=== PATIENT | female | born 1995 | race African-American/Black ===

== ENCOUNTER 2017-07-11 10:43 | Emergency (ER) | payer OTHER, SELFPAY ==
--- NOTE | 2017-07-11 11:18 | ER ---
Nurse's Notes [facility] Emergency [facility] Name: Tristan Song Age: 22 yrs Sex: Female : 1995 Arrival Date: 07/11/2017 Time: 10:46 Bed 15 Private MD: None, None Diagnosis: Urinary tract infection, site not specified Presentation: 07/11 10:50 Presenting complaint: Patient states: Pain in right shoulder that moved to lower back aj with pelvic cramping, started today. Transition of care: patient was not received from another setting of care. Onset of symptoms was July 11, 2017. Care prior to arrival: None. 10:50 Method Of Arrival: Ambulatory aj 10:50 Acuity: SHALA 3 aj 11:52 Risk Assessment: Do you want to hurt yourself or someone else? Patient reports no jl7 desire to harm self or others. Initial Sepsis Screen: Does the patient meet any 2 criteria? No. Patient's initial sepsis screen is negative. Does the patient have a suspected source of infection? Yes: Dysuria/Frequency/Urgency/UTI. Triage Assessment: 10:51 General: Appears in no apparent distress. uncomfortable, Behavior is calm, cooperative, aj appropriate for age. Pain: Complains of pain in back and pelvis. Neuro: Level of Consciousness is awake, alert, obeys commands, Oriented to person, place, time, situation, Appropriate for age. Respiratory: Airway is patent Respiratory effort is even, unlabored, Respiratory pattern is regular, symmetrical. GI: Abdomen is flat, non-distended. : Reports cramping. Derm: Skin is intact, is healthy with good turgor, Skin is pink, warm \T\ dry. normal. Musculoskeletal: Reports pain in back. INTERVENTIONAL RADIOLOGY RN: 10:51 LMP 06/11/2017 aj Historical: - Allergies: 10:51 No Known Allergies; aj - Home Meds: 10:51 None [Active]; aj - PMHx: 10:51 None; aj - PSHx: 10:51 None; aj - Immunization history:: Adult Immunizations up to date. - Social history:: Smoking status: Patient/guardian denies using tobacco. - Ebola Screening: : No symptoms or risks identified at this time. Screenin:15 Abuse screen: Denies threats or abuse. Denies injuries from another. Nutritional jl7 screening: No deficits noted. Tuberculosis screening: No symptoms or risk factors identified. Fall Risk None identified. Assessment: 11:15 General: Appears in no apparent distress. uncomfortable, Behavior is calm, cooperative, jl7 appropriate for age. Pain: Complains of pain in pelvis and back Pain currently is 10 out of 10 on a pain scale. Pain began 1 day ago. Is continuous. Neuro: Level of Consciousness is awake, alert, obeys commands. Cardiovascular: Patient's skin is warm and dry. Respiratory: Airway is patent Respiratory effort is even, unlabored, Respiratory pattern is regular, symmetrical. GI: Bowel sounds present X 4 quads. Abd is soft and non tender X 4 quads. Abdomen is tender to palpation in suprapubic area Reports nausea, vomiting. : Reports pain in suprapubic area with urination, urinary frequency, since last night. Derm: Skin is dry, Skin is normal, Skin temperature is warm. Vital Signs: 10:51 BP 135 / 72; Pulse 112; Resp 20; Temp 100.0; Pulse Ox 99% on R/A; Weight 63.5 kg; aj Height 5 ft. 9 in. (175.26 cm); 12:00 BP 134 / 71; Pulse 101; Resp 16; Pulse Ox 99% ; jl7 10:51 Body Mass Index 20.67 (63.50 kg, 175.26 cm) aj ED Course: 10:46 Patient arrived in ED. mr 10:46 None, None is Private Physician. mr 10:50 Triage completed. aj 10:51 Arm band placed on left wrist. Patient placed in an exam room. aj 10:54 Ana Luisa Sanders [facility]NP-C [facility]. snw 10:54 Paul Gonzales MD is Attending Physician. snw 11:05 Tricia Moore RN is Primary Nurse. jl7 11:15 Patient has correct armband on for positive identification. Bed in low position. Call jl7 light in reach. Side rails up X 1. Pulse ox on. NIBP on. 11:30 Urine collected: clean catch specimen, cloudy. jl7 11:51 No provider procedures requiring assistance completed. Patient did not have IV access jl7 during this emergency room visit. Administered Medications: 11:43 Drug: Rocephin (cefTRIAXone) 1 grams Route: IM; Site: right gluteus; jl7 12:06 Follow up: Response: No adverse reaction jl7 11:52 Drug: Bactrim (160 mg-800 mg (DS) 1 tablet Route: PO; 7 12:06 Follow up: Response: No adverse reaction 7 Outcome: 11:18 Discharge ordered by MD. cunningham 12:05 Discharged to home ambulatory. jl7 12:05 Condition: stable 12:05 Discharge instructions given to patient, family, Instructed on discharge instructions, follow up and referral plans. medication usage, Demonstrated understanding of instructions, follow-up care, medications, Prescriptions given X 1. 12:06 Patient left the ED. jl7 Addendum: 07/14/2017 15:54 Addendum: Culture Results: Positive urine culture. Bacteria is resistant to, has s s intermediate sensitivity, or is not tested against prescribed antibiotics. Report given to FLAKO for further evaluation and then to travel clerk for follow up with patient. Phone call Attempt #1 Spoke with patient who states she is still in pain. Pt verbalizes understanding importance of following up with PCP, but states she does not have insurance or money, therefore will not be able to follow up as directed by ER staff. Patient directed to stop Bactrim, continue Keflex and begin to take Macrobid that has been called in to [facility] as requested. Signatures: Tameka Lafleur, RN Ana Luisa Doyle, ROSALINDA HURLEYP-Chelsie Zamora Shelby, RN RN ss Leal, Jahala, RN RN jl7
--- NOTE | 2017-07-11 11:19 | EDPHYS ---
Physician Documentation [facility] Name: Tristan Song Age: 22 yrs Sex: Female : 1995 Arrival Date: 07/11/2017 Time: 10:46 Bed 15 Private MD: None, None ED Physician Paul Gonzales HPI: 07/11 11:41 This 22 yrs old Black Female presents to ER via Ambulatory with complaints of Abdominal snw Pain, Back Pain. 11:41 The patient presents with abdominal pain suprapubic, right upper hip. Onset: The snw symptoms/episode began/occurred suddenly, last night. The symptoms do not radiate. Associated signs and symptoms: Pertinent positives: lightheadedness, nausea. The symptoms are described as crampy. Severity of pain: At its worst the pain was moderate. It is unknown whether or not the patient has had similar symptoms in the past. It is unknown whether or not the patient has recently seen a physician. 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 - Social history:: Smoking status: Patient/guardian denies using tobacco. - Ebola Screening: : No symptoms or risks identified at this time. ROS: 11:40 Constitutional: Negative for fever, chills, and weight loss, Eyes: Negative for injury, snw pain, redness, and discharge, ENT: Negative for injury, pain, and discharge, Neck: Negative for injury, pain, and swelling, Cardiovascular: Negative for chest pain, palpitations, and edema, Respiratory: Negative for shortness of breath, cough, wheezing, and pleuritic chest pain, Abdomen/GI: Negative for abdominal pain, nausea, vomiting, diarrhea, and constipation, Back: Negative for injury and pain, MS/Extremity: Negative for injury and deformity, Skin: Negative for injury, rash, and discoloration, Neuro: Negative for headache, weakness, numbness, tingling, and seizure. Exam: 11:41 Constitutional: This is a well developed, well nourished patient who is awake, alert, snw and in no acute distress. Head/Face: Normocephalic, atraumatic. Eyes: Pupils equal round and reactive to light, extra-ocular motions intact. Lids and lashes normal. Conjunctiva and sclera are non-icteric and not injected. Cornea within normal limits. Periorbital areas with no swelling, redness, or edema. ENT: Nares patent. No nasal discharge, no septal abnormalities noted. Tympanic membranes are normal and external auditory canals are clear. Oropharynx with no redness, swelling, or masses, exudates, or evidence of obstruction, uvula midline. Mucous membranes moist. Neck: Trachea midline, no thyromegaly or masses palpated, and no cervical lymphadenopathy. Supple, full range of motion without nuchal rigidity, or vertebral point tenderness. No Meningismus. Chest/axilla: Normal chest wall appearance and motion. Nontender with no deformity. No lesions are appreciated. Cardiovascular: Regular rate and rhythm with a normal S1 and S2. No gallops, murmurs, or rubs. Normal PMI, no JVD. No pulse deficits. Respiratory: Lungs have equal breath sounds bilaterally, clear to auscultation and percussion. No rales, rhonchi or wheezes noted. No increased work of breathing, no retractions or nasal flaring. Abdomen/GI: Soft, non-tender, with normal bowel sounds. No distension or tympany. No guarding or rebound. No evidence of tenderness throughout. Back: No spinal tenderness. No costovertebral tenderness. Full range of motion. Skin: Warm, dry with normal turgor. Normal color with no rashes, no lesions, and no evidence of cellulitis. MS/ Extremity: Pulses equal, no cyanosis. Neurovascular intact. Full, normal range of motion. Neuro: Awake and alert, GCS 15, oriented to person, place, time, and situation. Cranial nerves II-XII grossly intact. Motor strength 5/5 in all extremities. Sensory grossly intact. Cerebellar exam normal. Normal gait. Psych: Awake, alert, with orientation to person, place and time. Behavior, mood, and affect are within normal limits. Vital Signs: 10:51 BP 135 / 72; Pulse 112; Resp 20; Temp 100.0; Pulse Ox 99% on R/A; Weight 63.5 kg; aj Height 5 ft. 9 in. (175.26 cm); 12:00 BP 134 / 71; Pulse 101; Resp 16; Pulse Ox 99% ; jl7 10:51 Body Mass Index 20.67 (63.50 kg, 175.26 cm) aj MDM: 10:54 Patient medically screened. snw 11:41 Data reviewed: vital signs, nurses notes. Data interpreted: Pulse oximetry: on room air snw is 99 %. Interpretation: normal. Counseling: I had a detailed discussion with the patient and/or guardian regarding: the historical points, exam findings, and any diagnostic results supporting the discharge/admit diagnosis, the presence of at least one elevated blood pressure reading (>120/80) during this emergency department visit, lab results, the need for outpatient follow up, to return to the emergency department if symptoms worsen or persist or if there are any questions or concerns that arise at home. Special discussion: Based on the patient's Hx, exam, and Dx evaluation, there is no indication for emergent surgery or inpatient Tx. It is understood by the patient/guardian that if the Sx's persist or worsen they need to return immediately for re-evaluation. Based on the history and exam findings, there is no indication for further emergent testing or inpatient evaluation. I discussed with the patient/guardian the need to see the OB Gyne specialist for further evaluation of the symptoms. I discussed with the patient/guardian the need to see the primary care provider for further evaluation of the symptoms. 07/11 10:56 Order name: Urine Culture [facility] 07/11 10:56 Order name: Urine Microscopic Only; Complete Time: 11:36 snw 07/11 11:25 Order name: Urine Dipstick--Ancillary (enter results); Complete Time: 11:36 bd 07/11 11:25 Order name: Urine --Ancillary (enter results); Complete Time: 11:36 bd 07/11 10:56 Order name: Urine Test (obtain specimen); Complete Time: 11:21 snw 07/11 10:56 Order name: Urine Dipstick-Ancillary (obtain specimen); Complete Time: 11:21 snw Administered Medications: 11:43 Drug: Rocephin (cefTRIAXone) 1 grams Route: IM; Site: right gluteus; jl7 12:06 Follow up: Response: No adverse reaction [facility] 11:52 Drug: Bactrim (160 mg-800 mg (DS) 1 tablet Route: PO; jl7 12:06 Follow up: Response: No adverse reaction jl7 Disposition: 22:08 Co-signature as Attending Physician, Paul Gonzales MD I agree with the assessment and kdr plan of care. Disposition: 07/11/17 11:18 Discharged to Home. Impression: Urinary tract infection, site not specified. - Condition is Stable. - Discharge Instructions: Back Pain, Adult, Urinary Tract Infection, Abdominal Pain, Women. - Prescriptions for Zofran 4 mg Oral Tablet - take 1 tablet by ORAL route every 12 hours As needed; 6 tablet. Bactrim DS 800- 160 mg Oral Tablet - take 1 tablet by ORAL route every 12 hours for 10 days; 20 tablet. - Medication Reconciliation Form, Thank You Letter, Antibiotic Education, Prescription Opioid Use, Work release form, Family Work Release form. - Follow up: Private Physician; When: 2 - 3 days; Reason: Recheck today's complaints, Continuance of care, Re-evaluation by your physician. Follow up: Emergency Department; When: As needed; Reason: Worsening of condition. Signatures: Dispatcher [employer] EDTameka Quick, RN RN Paul Gonzalez MD MD [facility] Ana Luisa Sanders, MACHINING TECHNICIAN-C MACHINING TECHNICIAN-Tricia Aguilar RN RN jl7 Corrections: (The following items were deleted from the chart) 12:06 11:18 07/11/2017 11:18 Discharged to Home. Impression: Urinary tract infection, site jl7 not specified. Condition is Stable. Forms are Medication Reconciliation Form, Thank You Letter, Antibiotic Education, Prescription Opioid Use. Follow up: Private Physician; When: 2 - 3 days; Reason: Recheck today's complaints, Continuance of care, Re-evaluation by your physician. Follow up: Emergency Department; When: As needed; Reason: Worsening of condition. snw
[2017-07-11 11:32] LABS: Urine Bacteria >50 /HPF (<20)
[2017-07-11 11:32] LABS: Urine Blood 2+ (NEG); Urine Glucose NEGATIVE (NEG); Urine Protein 2+ (NEG); Urine pH 5.5 (5.0-7.0)
[2017-07-11 11:34] LABS: Urine Culture Reflex Order NOT NEEDED
[2017-07-11] MEDS ORDERED: SMZ./TMP. 800/160 MG TABLET ONE (11:36)
[2017-07-11] MEDS ORDERED: CEFTRIAXONE 1000 MG/VIAL ONE (11:36)
[2017-07-11] MEDS ORDERED: WATER FOR INJ,STERILE 10 ML ONE (11:37)
[2017-07-11 12:10] VITALS: TEMP 100; O2SAT 99
[2017-07-11 12:11] VITALS: BP 134/71
== END 2017-07-11 12:06 | disposition home or self-care (01) ==
LOC: ER 10:43
DX: N39.0 Urinary tract infection, site not specified (principal); M54.9 Dorsalgia, unspecified
CPT/HCPCS: 81003; 81015; 81025; 87077; 87086; 87088; 87186; 96372; 99284

== ENCOUNTER 2017-07-12 12:36 | Emergency (ER) | payer SELFPAY ==
[2017-07-12] MEDS ORDERED: KETOROLAC 30 MG/ML INJ ONE (13:55)
[2017-07-12] MEDS ORDERED: NA CHLORIDE 0.9% 1,000 ML ONE (13:55)
[2017-07-12] MEDS ORDERED: CEFTRIAXONE/SWI 1gm 1 GM/10 ML SYR ONE (13:56)
--- NOTE | 2017-07-12 14:41 | RAD REPORT ---
EXAM DESCRIPTION: CT - Stone Protocol - 07/12/2017 2:24 pm CLINICAL HISTORY: Abdominal pain. Urinary tract infection COMPARISON: 2014 TECHNIQUE: Computed axial tomography of the abdomen pelvis was obtained without oral or IV contrast. Lack of IV and oral contrast limits evaluation of solid organs, bowel, and vessels. Coronal reformat maribell images were obtained and reviewed. All CT scans are performed using dose optimization technique as appropriate and may include automated exposure control or mA/KV adjustment according to patient size. FINDINGS: A renal calculus is not seen. An ureteral calculus is not noted. A bladder calculus is not present. Right perirenal stranding is seen The liver, spleen, pancreas and adrenals appear grossly normal Diastases of the rectus abdominis muscle sheath 5 centimeters is present Minimal free fluid within the pelvis probably is physiologic A tampon is present within the vagina IMPRESSION: Negative for a genitourinary calculus Mild right perirenal stranding may indicate inflammation
--- NOTE | 2017-07-12 14:56 | EDPHYS ---
Physician Documentation [facility] Name: Tristan Song Age: 22 yrs Sex: Female : 1995 Arrival Date: 07/12/2017 Time: 12:40 Bed 27 Private MD: None, None ED Physician Adnrews Shields HPI: 07/12 15:51 This 22 yrs old Black Female presents to ER via Ambulatory with complaints of Urinary gs Problem. 15:51 The patient complains of pain in the right low back. Onset: The symptoms/episode gs began/occurred 3 day(s) ago, and became worse and became persistent. Modifying factors: The symptoms are alleviated by nothing. the symptoms are aggravated by nothing. Associated signs and symptoms: Pertinent positives: dysuria. Severity of pain: At its worst the pain was severe in the emergency department the pain is unchanged. The patient has not experienced similar symptoms in the past. The patient has been recently seen at the [facility] Emergency Department, this week. MATERIALS HANDLER: 12:51 LMP 07/12/2017 aj Historical: - Allergies: 12:51 No Known Drug Allergies; aj - Home Meds: 12:51 Bactrim DS Oral [Active]; Zofran Oral [Active]; aj - PMHx: 12:51 None; aj - PSHx: 12:51 None; aj - Immunization history:: Adult Immunizations unknown. - Social history:: Smoking status: Patient/guardian denies using tobacco. - Ebola Screening: : Patient denies travel to an Ebola-affected area in the 21 days before illness onset No symptoms or risks identified at this time. ROS: 15:51 All other systems are negative. gs Exam: 15:51 Head/Face: Normocephalic, atraumatic. Eyes: Pupils equal round and reactive to light, gs extra-ocular motions intact. Lids and lashes normal. Conjunctiva and sclera are non-icteric and not injected. Cornea within normal limits. Periorbital areas with no swelling, redness, or edema. ENT: Nares patent. No nasal discharge, no septal abnormalities noted. Tympanic membranes are normal and external auditory canals are clear. Oropharynx with no redness, swelling, or masses, exudates, or evidence of obstruction, uvula midline. Mucous membranes moist. Neck: Trachea midline, no thyromegaly or masses palpated, and no cervical lymphadenopathy. Supple, full range of motion without nuchal rigidity, or vertebral point tenderness. No Meningismus. Chest/axilla: Normal chest wall appearance and motion. Nontender with no deformity. No lesions are appreciated. Cardiovascular: Regular rate and rhythm with a normal S1 and S2. No gallops, murmurs, or rubs. Normal PMI, no JVD. No pulse deficits. Respiratory: Lungs have equal breath sounds bilaterally, clear to auscultation and percussion. No rales, rhonchi or wheezes noted. No increased work of breathing, no retractions or nasal flaring. Abdomen/GI: Soft, non-tender, with normal bowel sounds. No distension or tympany. No guarding or rebound. No evidence of tenderness throughout. Skin: Warm, dry with normal turgor. Normal color with no rashes, no lesions, and no evidence of cellulitis. MS/ Extremity: Pulses equal, no cyanosis. Neurovascular intact. Full, normal range of motion. Neuro: Awake and alert, GCS 15, oriented to person, place, time, and situation. Cranial nerves II-XII grossly intact. Motor strength 5/5 in all extremities. Sensory grossly intact. Cerebellar exam normal. Normal gait. 15:51 Constitutional: The patient appears alert, awake, uncomfortable. 15:51 Back: CVA tenderness, that is moderate, is noted on the right. Vital Signs: 12:51 BP 121 / 88; Pulse 105; Resp 20; Temp 99.9; Pulse Ox 100% on R/A; Weight 61.23 kg; aj Height 5 ft. 9 in. (175.26 cm); 13:30 BP 121 / 61; Pulse 100; Resp 20; tm3 15:15 BP 115 / 73; Pulse 82; Resp 16; Pulse Ox 100% on R/A; tm3 12:51 Body Mass Index 19.94 (61.23 kg, 175.26 cm) aj MDM: 13:24 Patient medically screened. 15:51 Differential diagnosis: nephrolithiasis, pyelonephritis, UTI. Data reviewed: vital gs signs, nurses notes. Response to treatment: the patient's symptoms have markedly improved after treatment, and as a result, I will discharge patient. 07/12 13:27 Order name: CT Stone Protocol; Complete Time: 14:44 gs Administered Medications: 13:55 Drug: TORadol 30 mg Route: IVP; Site: left antecubital; tl3 15:04 Follow up: Response: No adverse reaction; Pain is decreased tl3 13:55 Drug: NS 0.9% 1000 ml Route: IV; Rate: 1 bolus; Site: left antecubital; Delivery: tl3 Primary tubing; 15:05 Follow up: IV Status: Completed infusion; IV Intake: 1000ml tl3 13:57 Drug: Rocephin - (cefTRIAXone) 1 grams Route: IVPB; Infused Over: 30 mins; Site: left tl3 antecubital; 14:15 Follow up: IV Status: Completed infusion; IV Intake: 20ml tl3 Disposition: 07/12/17 14:56 Discharged to Home. Impression: Acute tubulo-interstitial nephritis. - Condition is Stable. - Discharge Instructions: Pyelonephritis, Adult. - Prescriptions for Keflex 500 mg Oral Capsule - take 2 capsule by ORAL route every 12 hours for 7 days; 28 capsule. Tylenol- Codeine #4 300-60 mg Oral Tablet - take 1 tablet by ORAL route every 6 hours As needed; 12 tablet. - Medication Reconciliation Form, Thank You Letter, Antibiotic Education, Prescription Opioid Use form. - Follow up: Private Physician; When: 2 - 3 days; Reason: Re-evaluation by your physician. Signatures: Dispatcher [employer] Tameka Elizondo RN Andrews Beltrán MD MD gs Lowrey, Tammy, RN RN tl3 Corrections: (The following items were deleted from the chart) 15:29 14:56 07/12/2017 14:56 Discharged to Home. Impression: Acute tubulo-interstitial tl3 nephritis. Condition is Stable. Forms are Medication Reconciliation Form, Thank You Letter, Antibiotic Education, Prescription Opioid Use. Follow up: Private Physician; When: 2 - 3 days; Reason: Re-evaluation by your physician.
--- NOTE | 2017-07-12 14:56 | ER ---
Nurse's Notes [facility] Name: Tristan Song Age: 22 yrs Sex: Female : 1995 Arrival Date: 07/12/2017 Time: 12:40 Bed 27 Private MD: None, None Diagnosis: Acute tubulo-interstitial nephritis Presentation: 07/12 12:50 Presenting complaint: Patient states: Pain with urination. DX with UTI yesterday and aj discharged home with RX. "They didn't give me nothing for pain.". Transition of care: patient was not received from another setting of care. Onset of symptoms was July 12, 2017. Risk Assessment: Do you want to hurt yourself or someone else? Patient reports no desire to harm self or others. Initial Sepsis Screen: Does the patient meet any 2 criteria? No. Patient's initial sepsis screen is negative. Does the patient have a suspected source of infection?. Care prior to arrival: None. 12:50 Method Of Arrival: Ambulatory aj 12:50 Acuity: SHALA 4 aj Triage Assessment: 12:51 General: Appears. General: Appears in no apparent distress. Behavior is calm, aj cooperative, appropriate for age. Pain: Complains of pain in pelvis. Neuro: Level of Consciousness is awake, alert, obeys commands, Oriented to person, place, time, situation, Appropriate for age. Respiratory: Airway is patent Respiratory effort is even, unlabored, Respiratory pattern is regular, symmetrical. GI: Abdomen is flat, non-distended. : Reports burning with urination. Derm: Skin is intact, is healthy with good turgor, Skin is pink, warm \\T\\ dry. normal. 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 - Social history:: Smoking status: Patient/guardian denies using tobacco. - Ebola Screening: : Patient denies travel to an Ebola-affected area in the 21 days before illness onset No symptoms or risks identified at this time. Screenin:00 Abuse screen: Denies threats or abuse. Nutritional screening: No deficits noted. tl3 Tuberculosis screening: No symptoms or risk factors identified. Fall Risk None identified. Assessment: 13:00 General: Appears distressed, uncomfortable, slender, well groomed, well developed, well tl3 nourished, Behavior is calm, cooperative, appropriate for age. Pain: Complains of pain in pelvis. Neuro: No deficits noted. Level of Consciousness is awake, alert, obeys commands, Oriented to person, place, time, situation, Appropriate for age. Cardiovascular: No deficits noted. Heart tones S1 S2 present Patient's skin is warm and dry. Respiratory: No deficits noted. Airway is patent Respiratory effort is even, unlabored, Respiratory pattern is regular, symmetrical. GI: Bowel sounds present X 4 quads. Abdomen is tender to palpation. : Urine is clear, Reports. : Reports dx with UTI yesterday and put on Bactrim. EENT: No signs and/or symptoms were reported regarding the EENT system. Derm: No signs and/or symptoms reported regarding the dermatologic system. Musculoskeletal: No signs and/or symptoms reported regarding the musculoskeletal system. 15:27 Reassessment: Patient appears in no apparent distress at this time. No changes from tl3 previously documented assessment. Patient and/or family updated on plan of care and expected duration. Pain level reassessed. Patient is alert, oriented x 3, equal unlabored respirations, skin warm/dry/pink. pt states that pain is improved. Vital Signs: 12:51 BP 121 / 88; Pulse 105; Resp 20; Temp 99.9; Pulse Ox 100% on R/A; Weight 61.23 kg; aj Height 5 ft. 9 in. (175.26 cm); 13:30 BP 121 / 61; Pulse 100; Resp 20; tm3 15:15 BP 115 / 73; Pulse 82; Resp 16; Pulse Ox 100% on R/A; tm3 12:51 Body Mass Index 19.94 (61.23 kg, 175.26 cm) aj ED Course: 12:40 Patient arrived in ED. sb2 12:40 None, None is Private Physician. sb2 12:51 Triage completed. aj 12:51 Arm band placed on left wrist. Patient placed in waiting room, Patient notified of wait aj time. 13:00 Patient has correct armband on for positive identification. Bed in low position. Call tl3 light in reach. Side rails up X2. Pulse ox on. NIBP on. 13:00 No provider procedures requiring assistance completed. tl3 13:07 Jenna Grullon RN is Primary Nurse. tl3 13:12 Andrews Shields MD is Attending Physician. 13:48 Inserted saline lock: 20 gauge in left forearm, using aseptic technique. tl3 13:49 Radiology exam delayed due to IV insertion attempt and/or patient not having kw1 appropriate IV at this time. 14:[address] via stretcher. nj 14:23 CT Stone Protocol In Process Unspecified. EDMS 14:24 CT completed. Patient tolerated procedure well. Patient moved back from RI. nj 15:27 IV discontinued, intact, bleeding controlled, No redness/swelling at site. Pressure tl3 dressing applied. Administered Medications: 13:55 Drug: TORadol 30 mg Route: IVP; Site: left antecubital; tl3 15:04 Follow up: Response: No adverse reaction; Pain is decreased tl3 13:55 Drug: NS 0.9% 1000 ml Route: IV; Rate: 1 bolus; Site: left antecubital; Delivery: tl3 Primary tubing; 15:05 Follow up: IV Status: Completed infusion; IV Intake: 1000ml tl3 13:57 Drug: Rocephin - (cefTRIAXone) 1 grams Route: IVPB; Infused Over: 30 mins; Site: left tl3 antecubital; 14:15 Follow up: IV Status: Completed infusion; IV Intake: 20ml tl3 Intake: 14:15 IV: 20ml; Total: 20ml. tl3 15:05 IV: 1000ml; Total: 1020ml. tl3 Outcome: 14:56 Discharge ordered by . 15:27 Discharged to home ambulatory. tl3 15:27 Condition: good 15:27 Discharge instructions given to patient, Instructed on discharge instructions, follow up and referral plans. medication usage, Demonstrated understanding of instructions, follow-up care, medications, Prescriptions given X 2. 15:29 Patient left the ED. tl3 Signatures: Dispatcher [employer] EDMS Deandre Smith tm3 Tameka Lafleur RN RN aj Jordan, Nathan nj Starr, Gregory, MD MD Drea Berry kw1 Binta Colon sb2 Mitchel Jenna, RN RN tl3
[2017-07-12 15:33] VITALS: TEMP 99.9; O2SAT 100
[2017-07-12 15:35] VITALS: BP 115/73
== END 2017-07-12 15:29 | disposition home or self-care (01) ==
LOC: ER 12:36
DX: N10 Acute pyelonephritis (principal)
CPT/HCPCS: 74176; 76377; 96361; 96365; 96375; 99284; J0696; J7030

== ENCOUNTER 2018-03-10 18:11 | Emergency (ER) | payer SELFPAY ==
[2018-03-10 18:57] LABS: Absolute Lymphocytes (CBC) 1.1 K/uL (0.7-4.9); Absolute Monocytes 0.7 K/uL (0.1-1.3); Absolute Neutrophil 7.6 K/uL (1.8-8.0); Basophils % 0.4 % (0-1.3); Eosinophils % 0.1 % (0-4.4); Hematocrit 37.1 % (36.0-45.0); Lymphocytes % 11.3 % (15.3-44.8); MPV 7.7 fL (7.6-11.3); Monocytes % 7.4 % (3.3-12.3); RBC Red Blood Cell Count 4.68 M/uL (3.86-4.86)
[2018-03-10 19:12] LABS: Albumin 4.1 g/dL (3.4-5.0); Bilirubin Direct 0.2 mg/dL (0-0.2); Bilirubin Total 0.6 mg/dL (0.2-1.0); Potassium 3.8 mmol/L (3.5-5.1); Protein, Total 8.4 g/dL (6.4-8.2)
[2018-03-10 19:16] LABS: Urine Bacteria LOADED /HPF (<20); Urine Culture Reflex Order REFLEXED; Urine Mucus 2+ /HPF (NONE SEEN); Urine RBC <5 /HPF (NONE SEEN)
[2018-03-10] MEDS ORDERED: ONDANSETRON 4 MG/2 ML VIAL ONE (19:49)
[2018-03-10] MEDS ORDERED: MORPHINE 4 MG/ML SYR ONE (19:49)
[2018-03-10] MEDS ORDERED: CEFTRIAXONE 1000 MG/VIAL ONE (19:49)
[2018-03-10] MEDS ORDERED: NA CHLORIDE 0.9% 50 ML IV ONE (19:49)
--- NOTE | 2018-03-10 20:15 | RAD REPORT ---
EXAM DESCRIPTION: CT - Abdomen Pelvis W Contrast - 03/10/2018 7:46 pm CLINICAL HISTORY: Abdominal pain, right flank pain radiating into the right lower quadrant, history of kidney stones COMPARISON: CT study July 2017 TECHNIQUE: Biphasic, helical CT imaging of the abdomen and pelvis was performed following 100 ml non -ionic IV contrast. Oral contrast was given. All CT scans are performed using dose optimization technique as appropriate and may include automated exposure control or mA/KV adjustment according to patient size. FINDINGS: No suspicious findings in the lung bases. The liver, spleen, and pancreas show no suspicious findings. Gallbladder and biliary tree are also wi thout suspicious finding. Gallstones can be occult on CT imaging. Prompt renal function is seen. There is some heterogeneity of the right renal parenchyma particularly in the lower pole. No obstructing or nonobstructing calculi. There is no hydronephrosis. Anderson of th e right ureter are prominent relative to the left. Patient has multiple phleboliths in the pelvic alexa or similar to comparison. Bladder wall does not appear thickened or edematous. There is no bladder ca lculus. No adrenal abnormalities are seen. Uterus and ovaries show no suspicious findings. There is a n involuting small cyst on the left. No gastric dilatation or gastric wall thickening. No dilated small bowel loops. There are multiple fl uid-filled small bowel loops in the right lower quadrant. No acute appendicitis findings. The appendi x is 5 mm in size which is normal range. Small mesenteric lymph nodes are present. No free air or pn eumatosis. Physiologic quantity of free fluid seen. No hernia, mass or bulky lymphadenopathy. No suspicious bony findings. IMPRESSION: Heterogeneous enhancement pattern of the right kidney suspicious for right-sided pyelone phritis. Right-sided ureteritis is likely present as well. Fluid filled bowel loops in the right lower quadrant may be a secondary response to the pyelonephriti s or a concurrent enteritis. Appendicitis is not suspected currently. Large stool volume throughout the colon.
[2018-03-10 20:19] LABS: Urine Blood TRACE (NEG); Urine Glucose NEGATIVE (NEG); Urine Protein TRACE (NEG); Urine Specific Gravity 1.015 (1.005-1.030)
[2018-03-10] MEDS ORDERED: DIPHENHYDRAMINE 50 MG/ML VIAL ONE (20:21)
[2018-03-10] MEDS ORDERED: NA CHLORIDE 0.9% 1,000 ML ONE (20:36)
[2018-03-10] MEDS ORDERED: Levofloxacin500mg IV 500 MG/100 ML BAG IV ONE (20:36)
--- NOTE | 2018-03-10 21:15 | ER ---
Nurse's Notes [facility] Name: Tristan Song Age: 23 yrs Sex: Female : 1995 Arrival Date: 03/10/2018 Time: 18:14 Bed 14 Private MD: None, None Diagnosis: Acute tubulo-interstitial nephritis;Fever, unspecified;Cystitis Presentation: 03/10 18:32 Presenting complaint: Patient states: i have right flank pain radiating to my RLQ mg2 today. I have history of kidney stones. Transition of care: patient was not received from another setting of care. Onset of symptoms was March 10, 2018. Risk Assessment: Do you want to hurt yourself or someone else? Patient reports no desire to harm self or others. Initial Sepsis Screen: Does the patient meet any 2 criteria? No. Patient's initial sepsis screen is negative. Does the patient have a suspected source of infection? No. Patient's initial sepsis screen is negative. Care prior to arrival: None. 18:32 Method Of Arrival: Ambulatory mg2 18:32 Acuity: SHALA 3 mg2 GRINDER: 18:33 LMP-last month mg2 Historical: - Home Meds: 18:35 Bactrim DS Oral [Active]; Zofran Oral [Active]; mg2 - PMHx: 18:35 Kidney stones; mg2 - PSHx: 18:35 None; mg2 - Immunization history:: Flu vaccine is not up to date. - Social history:: Smoking status: Patient/guardian denies using tobacco, Patient uses alcohol, but reports only rare drinking. Patient/guardian denies using street drugs, IV drugs. - Ebola Screening: : No symptoms or risks identified at this time. - Family history:: not pertinent. Screenin:36 Abuse screen: Denies threats or abuse. Denies injuries from another. Nutritional mg2 screening: No deficits noted. Tuberculosis screening: No symptoms or risk factors identified. Fall Risk IV access (20 points). Assessment: 19:05 General: Appears in no apparent distress. uncomfortable, Behavior is calm, cooperative, cc3 appropriate for age. Pain: Complains of pain in right mid back and right lower quadrant and right low back. Neuro: Level of Consciousness is awake, alert, obeys commands, Oriented to person, place, time, situation, Appropriate for age. Cardiovascular: Denies chest pain. Respiratory: Airway is patent Respiratory effort is even, unlabored, Respiratory pattern is regular, symmetrical. GI: Abdomen is flat, non-distended. : No signs and/or symptoms were reported regarding the genitourinary system. EENT: No signs and/or symptoms were reported regarding the EENT system. Derm: No signs and/or symptoms reported regarding the dermatologic system. Musculoskeletal: Circulation, motion, and sensation intact. Range of motion: intact in all extremities. 20:30 Reassessment: Patient appears in no apparent distress at this time. Patient and/or cc3 family updated on plan of care and expected duration. Pain level reassessed. Patient is alert, oriented x 3, equal unlabored respirations, skin warm/dry/pink. Patient came back from CT scan department, technology training associate Colton said the patient had mild itching and cough after IV contrast was given, informed Dr. Orellana and ordered for IV Benadryl and carried out. 21:30 Reassessment: Patient appears in no apparent distress at this time. Patient and/or cc3 family updated on plan of care and expected duration. Pain level reassessed. Patient is alert, oriented x 3, equal unlabored respirations, skin warm/dry/pink. Dr. Orellana discharged the patient home with prescription given. IV cannula removed and patient left ER vitally stable and ambulatory with her family. Vital Signs: 18:33 Pulse 109; Resp 18; Temp 100(O); Pulse Ox 100% ; Weight 61.23 kg; Height 5 ft. 9 in. mg2 (175.26 cm); Pain 10/10; 19:20 BP 121 / 77; Pulse 89; Resp 20 S; Pulse Ox 100% on R/A; cc3 20:00 BP 128 / 77; Pulse 95; Resp 20 S; Pulse Ox 100% on R/A; cc3 21:18 BP 125 / 73; Pulse 91; Resp 17 S; Pulse Ox 100% on R/A; cc3 18:33 Body Mass Index 19.94 (61.23 kg, 175.26 cm) mg2 ED Course: 18:14 Patient arrived in ED. mr 18:14 None, None is Private Physician. mr 18:22 Peter Orellana MD is Attending Physician. cory 18:33 Triage completed. mg2 18:36 Arm band placed on. mg2 18:37 Urine collected: clean catch specimen, cloudy. jl7 18:45 Patient has correct armband on for positive identification. Placed in gown. Bed in low mg2 position. Call light in reach. Pulse ox on. NIBP on. Door closed. 18:45 No provider procedures requiring assistance completed. Inserted saline lock: 22 gauge mg2 in left forearm, using aseptic technique. Blood collected. 19:07 Yvrose Rivero is Primary Nurse. cc3 19:[address] via wheelchair. jg6 19:47 CT Abd/Pelvis - W/Contrast: iv only In Process Unspecified. EDMS 21:14 Paresh Mir MD is Referral Physician. cory 21:30 IV discontinued, intact, bleeding controlled, No redness/swelling at site. Pressure cc3 dressing applied. Administered Medications: 19:55 Drug: morphine 4 mg Route: IVP; Site: left antecubital; cc3 20:22 Follow up: Response: No adverse reaction; Pain is decreased cc3 20:00 Drug: Zofran 4 mg Route: IVP; Site: left antecubital; cc3 20:21 Follow up: Response: No adverse reaction; Nausea is decreased cc3 20:04 Drug: Rocephin - (cefTRIAXone) 1 grams Route: IVPB; Infused Over: 30 mins; Site: left cc3 antecubital; 20:20 Follow up: Response: No adverse reaction; IV Status: Completed infusion; IV Intake: [id number] 20:30 Drug: Benadryl 25 mg Route: IVP; Site: left antecubital; cc3 21:00 Follow up: Response: No adverse reaction cc3 20:30 Drug: NS 0.9% 1000 ml Route: IV; Rate: 1 bolus; Site: left antecubital; cc3 21:30 Follow up: Response: No adverse reaction; IV Status: Completed infusion; IV Intake: cc3 1000ml 20:35 Drug: levofloxacin 500 mg Volume: 100 ml; Route: IVPB; Infused Over: 60 mins; Site: cc3 left antecubital; 21:30 Follow up: Response: No adverse reaction; IV Status: Completed infusion; IV Intake: cc3 100ml Intake: 20:20 IV: 50ml; Total: 50ml. cc3 21:30 IV: 100ml; Total: 150ml. cc3 21:30 IV: 1000ml; Total: 1150ml. cc3 Outcome: 21:14 Discharge ordered by . cory 21:30 Discharged to home ambulatory, with family. cc3 21:30 Condition: stable 21:30 Discharge instructions given to patient, family, Instructed on discharge instructions, follow up and referral plans. medication usage, Demonstrated understanding of instructions, follow-up care, medications, Prescriptions given X 4. 21:44 Patient left the ED. cc3 Signatures: Dispatcher [employer] EDMS Peter Orellana MD MD cha Rivera, Arleth mr Moore, Tricia, RN RN jl7 Jessee Padilla RN RN [facility] Yvrose Rivero3 Chantelle León6 Corrections: (The following items were deleted from the chart) 22:52 20:20 Reassessment: Patient appears in no apparent distress at this time. Patient cc3 and/or family updated on plan of care and expected duration. Pain level reassessed. Patient is alert, oriented x 3, equal unlabored respirations, skin warm/dry/pink. cc3
--- NOTE | 2018-03-10 21:15 | EDPHYS ---
Physician Documentation [facility] Name: Tristan Song Age: 23 yrs Sex: Female : 1995 Arrival Date: 03/10/2018 Time: 18:14 Bed 14 Private MD: None, None ED Physician Peter Orellana HPI: 03/10 19:24 This 23 yrs old Black Female presents to ER via Ambulatory with complaints of Back cory Pain, Abdominal Pain. 19:24 The patient presents with pain that is acute, with no known mechanism of injury. The cory symptoms are located in the right low back. Onset: The symptoms/episode began/occurred 1 day(s) ago. The pain does not radiate. Associated signs and symptoms: The patient has no apparent associated signs or symptoms. Modifying factors: The patient symptoms are alleviated by nothing, the patient symptoms are aggravated by any movement, bending. Severity of symptoms: At their worst the symptoms were moderate, in the emergency department the symptoms are unchanged. The patient has experienced similar episodes in the past, a few times. 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 - Social history:: Smoking status: Patient/guardian denies using tobacco, Patient uses alcohol, but reports only rare drinking. Patient/guardian denies using street drugs, IV drugs. - Ebola Screening: : No symptoms or risks identified at this time. - Family history:: not pertinent. ROS: 19:24 Constitutional: Negative for fever, chills, and weight loss, Eyes: Negative for injury, cory pain, redness, and discharge, ENT: Negative for injury, pain, and discharge, Neck: Negative for injury, pain, and swelling, Cardiovascular: Negative for chest pain, palpitations, and edema, Respiratory: Negative for shortness of breath, cough, wheezing, and pleuritic chest pain, : Negative for injury, bleeding, discharge, and swelling, MS/Extremity: Negative for injury and deformity, Skin: Negative for injury, rash, and discoloration, Neuro: Negative for headache, weakness, numbness, tingling, and seizure, Psych: Negative for depression, anxiety, suicide ideation, homicidal ideation, and hallucinations, Allergy/Immunology: Negative for hives, rash, and allergies, Endocrine: Negative for neck swelling, polydipsia, polyuria, polyphagia, and marked weight changes, Hematologic/Lymphatic: Negative for swollen nodes, abnormal bleeding, and unusual bruising. 19:24 Abdomen/GI: Positive for abdominal pain, of the right lower quadrant. 19:24 Back: Positive for pain at rest, flank pain, on the right, radiated pain, of the right mid back and right low back. Exam: 19:24 Constitutional: This is a well developed, well nourished patient who is awake, alert, cory and in no acute distress. Head/Face: Normocephalic, atraumatic. Eyes: Pupils equal round and reactive to light, extra-ocular motions intact. Lids and lashes normal. Conjunctiva and sclera are non-icteric and not injected. Cornea within normal limits. Periorbital areas with no swelling, redness, or edema. ENT: Nares patent. No nasal discharge, no septal abnormalities noted. Tympanic membranes are normal and external auditory canals are clear. Oropharynx with no redness, swelling, or masses, exudates, or evidence of obstruction, uvula midline. Mucous membranes moist. Neck: Trachea midline, no thyromegaly or masses palpated, and no cervical lymphadenopathy. Supple, full range of motion without nuchal rigidity, or vertebral point tenderness. No Meningismus. Chest/axilla: Normal chest wall appearance and motion. Nontender with no deformity. No lesions are appreciated. Cardiovascular: Regular rate and rhythm with a normal S1 and S2. No gallops, murmurs, or rubs. Normal PMI, no JVD. No pulse deficits. Respiratory: Lungs have equal breath sounds bilaterally, clear to auscultation and percussion. No rales, rhonchi or wheezes noted. No increased work of breathing, no retractions or nasal flaring. Back: No spinal tenderness. No costovertebral tenderness. Full range of motion. Skin: Warm, dry with normal turgor. Normal color with no rashes, no lesions, and no evidence of cellulitis. MS/ Extremity: Pulses equal, no cyanosis. Neurovascular intact. Full, normal range of motion. Neuro: Awake and alert, GCS 15, oriented to person, place, time, and situation. Cranial nerves II-XII grossly intact. Motor strength 5/5 in all extremities. Sensory grossly intact. Cerebellar exam normal. Normal gait. Psych: Awake, alert, with orientation to person, place and time. Behavior, mood, and affect are within normal limits. 19:24 Abdomen/GI: Inspection: abdomen appears normal, Bowel sounds: normal, Palpation: moderate abdominal tenderness, in the right lower quadrant, Liver: no appreciated palpable abnormalities, Hernia: not appreciated. Vital Signs: 18:33 Pulse 109; Resp 18; Temp 100(O); Pulse Ox 100% ; Weight 61.23 kg; Height 5 ft. 9 in. mg2 (175.26 cm); Pain 10/10; 19:20 BP 121 / 77; Pulse 89; Resp 20 S; Pulse Ox 100% on R/A; cc3 20:00 BP 128 / 77; Pulse 95; Resp 20 S; Pulse Ox 100% on R/A; cc3 21:18 BP 125 / 73; Pulse 91; Resp 17 S; Pulse Ox 100% on R/A; cc3 18:33 Body Mass Index 19.94 (61.23 kg, 175.26 cm) mg2 MDM: 18:22 Patient medically screened. [facility] 19:26 Data reviewed: vital signs, nurses notes, lab test result(s), radiologic studies. [facility] 03/10 18:36 Order name: Basic Metabolic Panel; Complete Time: 19:27 mg2 03/10 18:36 Order name: CBC with Diff; Complete Time: 19:27 [facility] [place] 03/10 18:36 Order name: Creatinine for Radiology; Complete Time: 19:27 [facility] [place] 03/10 18:36 Order name: Hepatic Function; Complete Time: 19:27 [facility] [place] 03/10 18:36 Order name: Lipase; Complete Time: 19:27 mg2 03/10 18:37 Order name: Urine Microscopic Only; Complete Time: 19:27 jl7 03/10 18:42 Order name: Urine Dipstick--Ancillary (enter results); Complete Time: 20:20 bd 03/10 18:42 Order name: Urine --Ancillary (enter results); Complete Time: 20:20 bd 03/10 19:18 Order name: Urine Culture EDOK 03/10 19:28 Order name: CT Abd/Pelvis - W/Contrast: iv only; Complete Time: 20:20 cory 03/10 18:36 Order name: IV Saline Lock; Complete Time: 18:46 mg2 03/10 18:36 Order name: Labs collected and sent; Complete Time: 18:46 mg2 03/10 18:37 Order name: Urine Dipstick-Ancillary (obtain specimen); Complete Time: 18:37 jl7 Administered Medications: 19:55 Drug: morphine 4 mg Route: IVP; Site: left antecubital; cc3 20:22 Follow up: Response: No adverse reaction; Pain is decreased cc3 20:00 Drug: Zofran 4 mg Route: IVP; Site: left antecubital; cc3 20:21 Follow up: Response: No adverse reaction; Nausea is decreased cc3 20:04 Drug: Rocephin - (cefTRIAXone) 1 grams Route: IVPB; Infused Over: 30 mins; Site: left cc3 antecubital; 20:20 Follow up: Response: No adverse reaction; IV Status: Completed infusion; IV Intake: [id number] 20:30 Drug: Benadryl 25 mg Route: IVP; Site: left antecubital; cc3 21:00 Follow up: Response: No adverse reaction cc3 20:30 Drug: NS 0.9% 1000 ml Route: IV; Rate: 1 bolus; Site: left antecubital; cc3 21:30 Follow up: Response: No adverse reaction; IV Status: Completed infusion; IV Intake: cc3 1000ml 20:35 Drug: levofloxacin 500 mg Volume: 100 ml; Route: IVPB; Infused Over: 60 mins; Site: [facility] left antecubital; 21:30 Follow up: Response: No adverse reaction; IV Status: Completed infusion; IV Intake: cc3 100ml Disposition: 03/10/18 21:14 Discharged to Home. Impression: Acute tubulo-interstitial nephritis, Fever, unspecified, Cystitis. - Condition is Stable. - Discharge Instructions: Dysuria, Fever, Adult, Pyelonephritis, Adult, Pyelonephritis, Adult, [id number], Fever, Adult, Pgao-[id number]. - Prescriptions for Levaquin 500 mg Oral Tablet - take 1 tablet by ORAL route once daily for 8-10 days; 9 tablet. Tylenol- Codeine #3 300-30 mg Oral Tablet - take 2 tablets by ORAL route every 6 hours As needed; 20 tablet. Zofran 4 mg Oral Tablet - take 1 tablet by ORAL route every 12 hours As needed; 14 tablet. Bactrim DS 800- 160 mg Oral Tablet - take 1 tablet by ORAL route every 12 hours for 7 days; 14 tablet. - Medication Reconciliation Form, Thank You Letter, Antibiotic Education, Prescription Opioid Use form. - Follow up: Private Physician; When: 2 - 3 days; Reason: Recheck today's complaints, Continuance of care, Re-evaluation by your physician. Follow up: Paresh Mir MD; When: 2 - 3 days; Reason: Recheck today's complaints, Re-evaluation by your physician. - Problem is new. - Symptoms have improved. Signatures: Dispatcher [employer] EDPeter Kapadia MD MD cha Leal, Jahala RN RN jl7 Jessee Padilla RN RN mg2 Yvrose Rivero cc3 Corrections: (The following items were deleted from the chart) 21:44 21:14 03/10/2018 21:14 Discharged to Home. Impression: Acute tubulo-interstitial cc3 nephritis; Fever, unspecified; Cystitis. Condition is Stable. Discharge Instructions: Dysuria, Fever, Adult, Pyelonephritis, Adult, Pyelonephritis, Adult, Ybou-sy-Hqgz, Fever, Adult, Sqfy-ih-Yfwm. Prescriptions for Levaquin 500 mg Oral Tablet - take 1 tablet by ORAL route once daily for 8-10 days; 9 tablet, Tylenol-Codeine #3 300-30 mg Oral Tablet - take 2 tablets by ORAL route every 6 hours As needed; 20 tablet, Zofran 4 mg Oral Tablet - take 1 tablet by ORAL route every 12 hours As needed; 14 tablet, Bactrim DS 800-160 mg Oral Tablet - take 1 tablet by ORAL route every 12 hours for 7 days; 14 tablet. and Forms are Medication Reconciliation Form, Thank You Letter, Antibiotic Education, Prescription Opioid Use. Follow up: Private Physician; When: 2 - 3 days; Reason: Recheck today's complaints, Continuance of care, Re-evaluation by your physician. Follow up: Paresh Mir; When: 2 - 3 days; Reason: Recheck today's complaints, Re-evaluation by your physician. Problem is new. Symptoms have improved. cory
[2018-03-11 01:52] VITALS: BP 136/73; O2SAT 97
[2018-03-11 02:00] VITALS: TEMP 100
== END 2018-03-10 21:44 | disposition home or self-care (01) ==
LOC: ER 18:11
DX: N10 Acute pyelonephritis (principal); N30.90 Cystitis, unspecified without hematuria; Z87.442 Personal history of urinary calculi
CPT/HCPCS: 36415; 74177; 80048; 80076; 81003; 81015; 81025; 83690; 85025; 87077; 87086; 87088; 87186; 96365; 96367; 96375; 99284; J2405; J7030; Q9967

== ENCOUNTER 2018-03-13 07:12 | Emergency (ER) | payer SELFPAY ==
[2018-03-13] MEDS ORDERED: NA CHLORIDE 0.9% 1,000 ML ONE (07:50)
[2018-03-13 08:17] LABS: Absolute Monocytes 0.7 K/uL (0.1-1.3); Basophils % 0.2 % (0-1.3); Eosinophils % 0.2 % (0-4.4); Hematocrit 37.4 % (36.0-45.0); Lymphocytes % 10.5 % (15.3-44.8); MPV 7.8 fL (7.6-11.3); Monocytes % 6.8 % (3.3-12.3); RBC Red Blood Cell Count 4.79 M/uL (3.86-4.86)
[2018-03-13 08:20] LABS: BUN Blood Urea Nitrogen 8 mg/dL (7-18); Bicarbonate 22 mmol/L (21-32); Glucose Level 80 mg/dL (74-106); Potassium 3.8 mmol/L (3.5-5.1); Sodium Level 135 mmol/L (136-145)
[2018-03-13 08:22] LABS: Urine Blood 1+ (NEG); Urine Glucose NEGATIVE (NEG); Urine Protein 1+ (NEG)
[2018-03-13 08:28] LABS: Urine Bacteria 20-50 /HPF (<20)
[2018-03-13 08:29] LABS: Urine Culture Reflex Order REFLEXED
[2018-03-13] MEDS ORDERED: KETOROLAC 30 MG/ML INJ ONE (08:52)
--- NOTE | 2018-03-13 09:56 | ER ---
Nurse's Notes [facility] Name: Tristan Song Age: 23 yrs Sex: Female : 1995 Arrival Date: 03/13/2018 Time: 07:15 Bed 13 Private MD: Diagnosis: Acute tubulo-interstitial nephritis Presentation: 03/13 07:25 Presenting complaint: Patient states: Diagnosed with a kidney infection two days ago ss and given two antibiotics and pain medication which does not seem to be helping. C/o R flank pain. Denies fever. Transition of care: patient was not received from another setting of care. Onset of symptoms was February 2018. Risk Assessment: Do you want to hurt yourself or someone else? Patient reports no desire to harm self or others. Initial Sepsis Screen: Does the patient meet any 2 criteria? No. Patient's initial sepsis screen is negative. Does the patient have a suspected source of infection? No. Patient's initial sepsis screen is negative. Care prior to arrival: None. 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 - Social history:: Smoking status: Patient/guardian denies using tobacco. - Ebola Screening: : Patient denies exposure to infectious person Patient denies travel to an Ebola-affected area in the 21 days before illness onset. Screenin:20 Abuse screen: Denies threats or abuse. Nutritional screening: No deficits noted. rb1 Tuberculosis screening: No symptoms or risk factors identified. Fall Risk None identified. Assessment: 07:20 General: Appears uncomfortable, Behavior is calm, cooperative. Pain: Complains of pain rb1 in right flank Pain currently is 8 out of 10 on a pain scale. Neuro: Level of Consciousness is awake, alert, obeys commands, Oriented to person, place, time, situation. Cardiovascular: Capillary refill < 3 seconds is brisk in bilateral fingers. Respiratory: Airway is patent Respiratory effort is even, unlabored, Respiratory pattern is regular, symmetrical. GI: Reports nausea. Derm: Skin is dry, Skin is normal, Skin temperature is warm. 08:20 Reassessment: Patient appears in no apparent distress at this time. Patient and/or rb1 family updated on plan of care and expected duration. Pain level reassessed. Patient is alert, oriented x 3, equal unlabored respirations, skin warm/dry/pink. 09:18 Reassessment: Patient appears in no apparent distress at this time. Patient and/or ph family updated on plan of care and expected duration. Pain level reassessed. Patient is alert, oriented x 3, equal unlabored respirations, skin warm/dry/pink. Pt given water for PO challenge. 09:40 Reassessment: Pt. tolerated PO challenge, no vomiting noted at this time. rb1 Vital Signs: 07:27 BP 118 / 75; Pulse 87; Resp 15; Temp 98.8(TE); Pulse Ox 97% on R/A; Weight 61.23 kg; ss Height 5 ft. 9 in. (175.26 cm); Pain 8/10; 08:25 BP 111 / 59; Pulse 77; Resp 16; Pulse Ox 100% on R/A; Pain 8/10; rb1 09:25 BP 115 / 66; Pulse 77; Resp 17; Pulse Ox 100% on R/A; Pain 5/10; rb1 07:27 Body Mass Index 19.94 (61.23 kg, 175.26 cm) ss ED Course: 07:15 Patient arrived in ED. as 07:17 Alison Roldan FNP-C is PHCP. kb 07:17 Paul Gonzales MD is Attending Physician. kb 07:20 Patient has correct armband on for positive identification. Placed in gown. Bed in low rb1 position. Call light in reach. Side rails up X 1. Pulse ox on. NIBP on. 07:23 Shea Mckoy, RN is Primary Nurse. rb1 07:27 Triage completed. ss 07:27 Arm band placed on right wrist. ss 07:50 Inserted saline lock: 22 gauge in left antecubital area, using aseptic technique. Blood rb1 collected. 10:05 No provider procedures requiring assistance completed. IV discontinued, intact, rb1 bleeding controlled, No redness/swelling at site. Pressure dressing applied. Administered Medications: 07:57 Drug: NS 0.9% 1000 ml Route: IV; Rate: 1000 ml; Site: left antecubital; rb1 08:45 Follow up: IV Status: Completed infusion rb1 08:45 Drug: TORadol 30 mg Route: IVP; Site: left antecubital; rb1 09:05 Follow up: Response: No adverse reaction; Pain is decreased rb1 Outcome: 09:56 Discharge ordered by . kb 10:05 Patient left the ED. rb1 10:05 Discharged to home ambulatory. rb1 10:05 Condition: stable 10:05 Discharge instructions given to patient, Instructed on discharge instructions, follow up and referral plans. medication usage, Demonstrated understanding of instructions, follow-up care, medications, Prescriptions given X 1. Signatures: Alison Roldan, PAPERBOARD BOX MAKER-C PAPERBOARD BOX MAKER-Kenna Noe Shelby, MAHIN RN ss Jana Felipe RN RN Shea Mckoy RN RN rb1
--- NOTE | 2018-03-13 09:57 | EDPHYS ---
Physician Documentation [facility] Name: Tristan Song Age: 23 yrs Sex: Female : 1995 Arrival Date: 03/13/2018 Time: 07:15 Bed 13 Private MD: ED Physician Paul Gonzales HPI: 03/13 07:46 This 23 yrs old Black Female presents to ER via Ambulatory with complaints of Flank kb Pain. 07:46 The patient complains of pain in the right flank. The pain does not radiate. Onset: The kb symptoms/episode began/occurred last week. Modifying factors: The symptoms are alleviated by nothing. the symptoms are aggravated by palpation/percussion. Associated signs and symptoms: Pertinent positives: nausea, vomiting, Pertinent negatives: diarrhea, dizziness, dysuria, fever, urinary frequency, headache, hematuria, pain radiating to the lower extremities. Severity of pain: At its worst the pain was moderate in the emergency department the pain is unchanged. The patient has not experienced similar symptoms in the past. The patient has been recently seen at the [facility] Emergency Department, this week, for similar complaints labs were performed, CT scan was performed, was given a prescription for antibiotics. Pt came in for right flank pain on 03/10 and was diagnosed with pyelonephritis. States she has been taking the levaquin, but the pain is getting worse and the nausea isn't any better. States she wasn't able to tolerate the medication one day. . 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 - Social history:: Smoking status: Patient/guardian denies using tobacco. - Ebola Screening: : Patient denies exposure to infectious person Patient denies travel to an Ebola-affected area in the 21 days before illness onset. ROS: 07:44 Constitutional: Negative for fever, chills, and weight loss, ENT: Negative for injury, kb pain, and discharge, Neck: Negative for injury, pain, and swelling, Cardiovascular: Negative for chest pain, palpitations, and edema, Respiratory: Negative for shortness of breath, cough, wheezing, and pleuritic chest pain, MS/Extremity: Negative for injury and deformity, Skin: Negative for injury, rash, and discoloration, Neuro: Negative for headache, weakness, numbness, tingling, and seizure. 07:44 Abdomen/GI: Positive for nausea and vomiting. 07:44 : Positive for flank pain. Exam: 07:45 Constitutional: This is a well developed, well nourished patient who is awake, alert, kb and in no acute distress. Head/Face: Normocephalic, atraumatic. Chest/axilla: Normal chest wall appearance and motion. Nontender with no deformity. No lesions are appreciated. Cardiovascular: Regular rate and rhythm with a normal S1 and S2. No gallops, murmurs, or rubs. Normal PMI, no JVD. No pulse deficits. Respiratory: Lungs have equal breath sounds bilaterally, clear to auscultation and percussion. No rales, rhonchi or wheezes noted. No increased work of breathing, no retractions or nasal flaring. Abdomen/GI: Soft, non-tender, with normal bowel sounds. No distension or tympany. No guarding or rebound. No evidence of tenderness throughout. Skin: Warm, dry with normal turgor. Normal color with no rashes, no lesions, and no evidence of cellulitis. MS/ Extremity: Pulses equal, no cyanosis. Neurovascular intact. Full, normal range of motion. Neuro: Awake and alert, GCS 15, oriented to person, place, time, and situation. Cranial nerves II-XII grossly intact. Motor strength 5/5 in all extremities. Sensory grossly intact. Cerebellar exam normal. Normal gait. 07:45 Back: CVA tenderness, that is moderate, is noted on the right. Vital Signs: 07:27 BP 118 / 75; Pulse 87; Resp 15; Temp 98.8(TE); Pulse Ox 97% on R/A; Weight 61.23 kg; ss Height 5 ft. 9 in. (175.26 cm); Pain 8/10; 08:25 BP 111 / 59; Pulse 77; Resp 16; Pulse Ox 100% on R/A; Pain 8/10; rb1 09:25 BP 115 / 66; Pulse 77; Resp 17; Pulse Ox 100% on R/A; Pain 5/10; rb1 07:27 Body Mass Index 19.94 (61.23 kg, 175.26 cm) ss MDM: 07:18 Patient medically screened. kb 07:44 Data reviewed: vital signs, nurses notes. Data interpreted: Pulse oximetry: on room air kb is 97 %. Interpretation: normal. 08:26 Counseling: I had a detailed discussion with the patient and/or guardian regarding: the kb historical points, exam findings, and any diagnostic results supporting the discharge/admit diagnosis, lab results, the need for further work-up and treatment in the hospital. Physician consultation: Lilia Palma MD was called at 08:26. Physician consultation: Maria Luisa Peter MD was called at 08:26. 03/13 07:28 Order name: Basic Metabolic Panel; Complete Time: 08:22 kb 03/13 07:28 Order name: CBC with Diff; Complete Time: 08:18 kb 03/13 07:28 Order name: Urine Microscopic Only; Complete Time: 08:33 kb 03/13 08:08 Order name: Urine Dipstick--Ancillary (enter results); Complete Time: 08:22 eb 03/13 08:08 Order name: Urine --Ancillary (enter results); Complete Time: 08:22 eb 03/13 08:34 Order name: Urine Culture EDMS 03/13 07:28 Order name: IV Saline Lock; Complete Time: 07:59 kb 03/13 07:28 Order name: Labs collected and sent; Complete Time: 07:59 kb 03/13 07:28 Order name: Urine Test (obtain specimen); Complete Time: 08:13 kb 03/13 07:28 Order name: Urine Dipstick-Ancillary (obtain specimen); Complete Time: 08:13 kb 03/13 09:07 Order name: PO challenge; Complete Time: 09:18 kb Administered Medications: 07:57 Drug: NS 0.9% 1000 ml Route: IV; Rate: 1000 ml; Site: left antecubital; rb1 08:45 Follow up: IV Status: Completed infusion rb1 08:45 Drug: TORadol 30 mg Route: IVP; Site: left antecubital; rb1 09:05 Follow up: Response: No adverse reaction; Pain is decreased rb1 Disposition: 13:59 Co-signature as Attending Physician, Paul Gonzales MD I agree with the assessment and kdr plan of care. Disposition: 03/13/18 09:56 Discharged to Home. Impression: Acute tubulo-interstitial nephritis. - Condition is Stable. - Discharge Instructions: Pyelonephritis, Adult, [id number]. - Prescriptions for Zofran ODT 4 mg Oral tablet,disintegrating - place 1 tablet by TRANSLINGUAL route every 6 hours As needed; 20 tablet. - Medication Reconciliation Form, Thank You Letter, Antibiotic Education, Prescription Opioid Use form. - Follow up: Emergency Department; When: As needed; Reason: Worsening of condition. Follow up: Private Physician; When: 2 - 3 days; Reason: Recheck today's complaints, Continuance of care, Re-evaluation by your physician. - Notes: Continue previously prescribed levaquin (culture result shows sensitivity to this antibiotic). Signatures: Dispatcher [employer] EDMS Alison Roldan, FIONA-Ro HURLEYP-Paul Johnston MD MD kdr Smirch, Shelby, RN RN ss Shea Mckoy RN RN rb1 Corrections: (The following items were deleted from the chart) 10:05 09:56 03/13/2018 09:56 Discharged to Home. Impression: Acute tubulo-interstitial rb1 nephritis. Condition is Stable. Forms are Medication Reconciliation Form, Thank You Letter, Antibiotic Education, Prescription Opioid Use. Follow up: Emergency Department; When: As needed; Reason: Worsening of condition. Follow up: Private Physician; When: 2 - 3 days; Reason: Recheck today's complaints, Continuance of care, Re-evaluation by your physician. kb
[2018-03-13 10:13] VITALS: TEMP 98.8
[2018-03-13 10:14] VITALS: O2SAT 100
[2018-03-13 10:16] VITALS: BP 115/66
== END 2018-03-13 10:05 | disposition home or self-care (01) ==
LOC: ER 07:12
DX: N10 Acute pyelonephritis (principal)
CPT/HCPCS: 36415; 80048; 81003; 81015; 81025; 85025; 87086; 87088; 96361; 96374; 99284; J7030

== ENCOUNTER 2018-07-08 11:47 | Emergency (ER) | payer SELFPAY ==
[2018-07-08] MEDS ORDERED: ONDANSETRON 4 MG/2 ML VIAL ONE (12:48)
[2018-07-08] MEDS ORDERED: DIPHENHYDRAMINE 50 MG/ML VIAL ONE (12:48)
[2018-07-08] MEDS ORDERED: NA CHLORIDE 0.9% 1,000 ML ONE (12:49)
[2018-07-08 12:52] LABS: Urine Blood NEGATIVE (NEG); Urine Glucose NEGATIVE (NEG); Urine Protein NEGATIVE (NEG); Urine Specific Gravity 1.025 (1.005-1.030); Urine pH 5.5 (5.0-7.0)
[2018-07-08] MEDS ORDERED: ONDANSETRON 4 MG (ODT) TAB ONE ×2 (13:38→16:04)
[2018-07-08 14:00] LABS: ALT/SGPT 16 U/L (12-78); AST/SGOT 17 U/L (15-37); Albumin 4.2 g/dL (3.4-5.0); Alkaline Phosphatase 54 U/L (45-117); BUN Blood Urea Nitrogen 8 mg/dL (7-18); Bicarbonate 21 mmol/L (21-32); Bilirubin Direct 0.1 mg/dL (0-0.2); Bilirubin Total 0.5 mg/dL (0.2-1.0); Glucose Level 89 mg/dL (74-106); Lipase 167 U/L (73-393); Potassium 4.3 mmol/L (3.5-5.1); Protein, Total 8.7 g/dL (6.4-8.2); Sodium Level 135 mmol/L (136-145)
--- NOTE | 2018-07-08 14:20 | RAD REPORT ---
EXAM DESCRIPTION: US - Transvaginal OB - 07/08/2018 1:49 pm CLINICAL HISTORY: , abdominal pain, possible ectopic COMPARISON: None. TECHNIQUE: Endovaginal sonography performed. FINDINGS: Approximately 2.5 centimeter anechoic left ovarian cyst is present. No left adnexal mass seen is typi scott or suspicious for an ectopic . Right adnexa is limited. There is prominent bowel in this region. The mass is not suspected. An intrauterine gestational sac is seen normally configuration containing a yolk sac. No pole i s seen. Adjacent to the gestational sac is a 4.7 centimeter heterogeneous, hypoechoic mass. This is m ost likely a large subchorionic hemorrhage. The hemorrhage is substantially larger than the gestation al sac making this an at-risk . Uterus measures 9 x 6.5 x 6.0 cm. Gestational sac measurement corresponds to a 6 week 3 day age. IMPRESSION: An intrauterine gestational sac is identified measuring 6 weeks 3 days in age. This cont ains a yolk sac but no pole. A large nearly 5 centimeter mass within the endometrial cavity abutting the gestational sac is believ ed to be a large subchorionic hemorrhage. The benign-appearing left ovarian or adnexal cyst is present. No mass or focal abnormality to suspect ectopic .
--- NOTE | 2018-07-08 14:55 | ER ---
Nurse's Notes [facility] Name: Tristan Song Age: 23 yrs Sex: Female : 1995 Arrival Date: 07/08/2018 Time: 11:48 Bed 25 Private MD: Diagnosis: related conditions, unspecified-possible ectopic , stable Presentation: 07/08 11:58 Presenting complaint: N/D, lower abdominal cramping, low back pain, and dizziness x 2 hb days. Denies fever/vomiting. Transition of care: patient was not received from another setting of care. Onset of symptoms was July 07, 2018. Risk Assessment: Do you want to hurt yourself or someone else? Patient reports no desire to harm self or others. Care prior to arrival: None. 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 - Social history:: Smoking status: Patient/guardian denies using tobacco, Patient/guardian denies using alcohol, street drugs, The patient lives with family. - Ebola Screening: : No symptoms or risks identified at this time. - Family history:: not pertinent. Screenin:12 Abuse screen: Denies threats or abuse. Denies injuries from another. Nutritional sg screening: No deficits noted. Tuberculosis screening: No symptoms or risk factors identified. Never had TB. Fall Risk None identified. Assessment: 12:15 General: Appears in no apparent distress. well groomed, well developed, well nourished, sg Behavior is calm, cooperative, appropriate for age. Pain: Denies pain. Neuro: Level of Consciousness is awake, alert, obeys commands, Oriented to person, place, time, situation, [employer] Air[employer] Officer are equal bilaterally Moves all extremities. Full function Gait is steady, Speech is normal, Facial symmetry appears normal, Pupils are PERRLA, Reports dizziness. Cardiovascular: Patient's skin is warm and dry. Chest pain is denied. Respiratory: Airway is patent Respiratory effort is even, unlabored, Respiratory pattern is regular, symmetrical. GI: Abdomen is flat, non-distended, Bowel sounds present X 4 quads. Reports nausea, tolerance of fluids, tolerance of food. : No signs and/or symptoms were reported regarding the genitourinary system. EENT: No signs and/or symptoms were reported regarding the EENT system. Derm: Skin is pink, warm \\T\\ dry. Musculoskeletal: No signs and/or symptoms reported regarding the musculoskeletal system. 13:54 Reassessment: pt remains off the unit in Ultrasound at this time, awaiting lab results, sg awaiting ultrasound results, will continue to monitor. 14:20 Reassessment: Lab contacted, spoke with Jonny, awaiting recollect at this time. sg 14:22 Reassessment: pt informed that blood work has resulted, however a recollect is needed sg for the recollect on the lavender tube, pt stated understanding, pt states " that pill for vomiting has not helped, I still feel nauseated have not vomited and my back still hurts." notified. 14:24 Reassessment: lab at bedside at this time. sg 15:30 Reassessment: Patient appears in no apparent distress at this time. Lab at bedside for sg a TS, notified that a repeat CBC has been sent, orders to DC pt to home with follow up tomorrow at . Vital Signs: 12:00 BP 120 / 71; Pulse 88; Resp 16; Temp 97.9; Pulse Ox 100% on R/A; Weight 61.23 kg; hb Height 5 ft. 9 in. (175.26 cm); Pain 6/10; 12:00 Body Mass Index 19.94 (61.23 kg, 175.26 cm) hb ED Course: 11:48 Patient arrived in ED. as 11:59 Triage completed. hb 12:00 Arm band placed on. hb 12:02 Aaron Coto MD is Attending Physician. ma2 12:27 Alexander Caldwell, MAHIN is Primary Nurse. sg 13:18 Missed attempt(s): 22 gauge in right antecubital area. Bleeding controlled, band aid sg applied, catheter tip intact. 13:28 Missed attempt(s): 24 gauge in left forearm. Bleeding controlled, band aid applied, sg catheter tip intact. 13:28 Initial lab(s) drawn, by me, sent to lab. sg 13:52 Ultrasound completed. hr 14:03 Transvaginal OB In Process Unspecified. EDMS 14:53 Sonido Jordan MD is Referral Physician. ma2 16:00 Diet: Patient given water. Tolerated poorly. sg Administered Medications: 13:29 Drug: Zofran 4 mg Route: PO; sg 14:00 Follow up: Response: No adverse reaction; No change in condition; Nausea unchanged sg 13:36 Not Given (Other Intervention Used): Zofran 4 mg IVP once; over 2 minutes sg 14:59 Not Given (Other Intervention Used): NS 0.9% 2000 ml IV at 1 bolus Per protocol; 1000 sg mL bolus 14:59 Not Given (Other Intervention Used): Benadryl 50 mg IVP once sg 15:20 Drug: Tylenol 500 mg Route: PO; sg 16:02 Follow up: Response: No adverse reaction; Pain is decreased sg 16:00 Drug: Zofran 4 mg Route: PO; sg 16:00 Drug: Benadryl 25 mg Route: PO; sg Outcome: 14:54 Discharge ordered by . ma2 16:38 Patient left the ED. lt1 Signatures: Dispatcher [employer] EDMS Alexander Caldwell RN RN Smitha Alvarez Amelia as Baxter, Heather, RN RN Aaron Coto MD MD ma2 Tran, Leah lt1 Corrections: (The following items were deleted from the chart) 13:43 13:28 Missed attempt(s): 26 gauge in left antecubital area. Bleeding controlled, band sg aid applied, catheter tip intact. sg
--- NOTE | 2018-07-08 14:55 | EDPHYS ---
[facility] Name: Tristan Song Age: 23 yrs Sex: Female : 1995 Arrival Date: 07/08/2018 Time: 11:48 Bed 25 Private MD: ED Physician Aaron Coto HPI: 07/08 12:31 This 23 yrs old Black Female presents to ER via Ambulatory with complaints of ma2 Dizziness, Back Pain, Nausea. 12:31 The patient presents with dizziness. Onset: The symptoms/episode began/occurred ma2 gradually, 1 day(s) ago. Associated signs and symptoms: Pertinent positives: n/V/D x 1 day, Pertinent negatives: blurred vision, confusion, focal weakness, seizure. Severity of symptoms: At their worst the symptoms were mild in the emergency department the symptoms are unchanged. The patient has not experienced similar symptoms in the past. 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 - Social history:: Smoking status: Patient/guardian denies using tobacco, Patient/guardian denies using alcohol, street drugs, The patient lives with family. - Ebola Screening: : No symptoms or risks identified at this time. - Family history:: not pertinent. ROS: 12:31 Constitutional: Negative for fever, chills, and weight loss, Cardiovascular: Negative ma2 for chest pain, palpitations, and edema, Respiratory: Negative for shortness of breath, cough, wheezing, and pleuritic chest pain, Neuro: Negative for headache, weakness, numbness, tingling, and seizure, Psych: Negative for depression, anxiety, suicide ideation, homicidal ideation, and hallucinations. 12:31 Abdomen/GI: Positive for nausea, vomiting, and diarrhea, Negative for vomiting, constipation, abdominal cramps, bowel incontinence. Exam: 12:31 Constitutional: This is a well developed, well nourished patient who is awake, alert, ma2 and in no acute distress. Head/Face: Normocephalic, atraumatic. ENT: Nares patent. No nasal discharge, no septal abnormalities noted. Tympanic membranes are normal and external auditory canals are clear. Oropharynx with no redness, swelling, or masses, exudates, or evidence of obstruction, uvula midline. Mucous membranes moist. Chest/axilla: Normal chest wall appearance and motion. Nontender with no deformity. No lesions are appreciated. Cardiovascular: Regular rate and rhythm with a normal S1 and S2. No gallops, murmurs, or rubs. Normal PMI, no JVD. No pulse deficits. Respiratory: Lungs have equal breath sounds bilaterally, clear to auscultation and percussion. No rales, rhonchi or wheezes noted. No increased work of breathing, no retractions or nasal flaring. Abdomen/GI: Soft, non-tender, with normal bowel sounds. No distension or tympany. No guarding or rebound. No evidence of tenderness throughout. Back: No spinal tenderness. No costovertebral tenderness. Full range of motion. Skin: Warm, dry with normal turgor. Normal color with no rashes, no lesions, and no evidence of cellulitis. MS/ Extremity: Pulses equal, no cyanosis. Neurovascular intact. Full, normal range of motion. Vital Signs: 12:00 BP 120 / 71; Pulse 88; Resp 16; Temp 97.9; Pulse Ox 100% on R/A; Weight 61.23 kg; hb Height 5 ft. 9 in. (175.26 cm); Pain 6/10; 12:00 Body Mass Index 19.94 (61.23 kg, 175.26 cm) hb MDM: 12:02 Patient medically screened. ma2 12:31 Differential diagnosis: diarrhea, dehydration . ma2 14:45 Data reviewed: vital signs, nurses notes, lab test result(s), radiologic studies. ma2 Counseling: I had a detailed discussion with the patient and/or guardian regarding: the historical points, exam findings, and any diagnostic results supporting the discharge/admit diagnosis, the presence of at least one elevated blood pressure reading (>120/80) during this emergency department visit, the need for outpatient follow up. Response to treatment: the patient's symptoms have mildly improved after treatment. ED course: patient has IU sac measures 6 wks with no pole also has another endometrial 5 cm sac that is likely subchorionic bleed per radiologist. patient has no vaginal bleeding, vs wnl, has minor cramps, this finding is discussed with dr. Turner who recommend repeating US in 6 days and outpatient management, advised against any further intervention at this time given patient is stable.. ectopic still on table, she will need 2 days beta hcg repeat and US in 5 days I explained to her to return to er if having any worsening of her pain or new symptoms such as vaginal bleeding, and she will call dr. turner office today to schedule appointment. in the next 48 hrs . 07/08 12:21 Order name: Basic Metabolic Panel; Complete Time: 14:11 [facility] 07/08 12:21 Order name: Creatinine for Radiology; Complete Time: 14:02 [facility] 07/08 12:21 Order name: Hepatic Function; Complete Time: 14:11 [facility] 07/08 12:21 Order name: Lipase; Complete Time: 14:11 [facility] 07/08 12:45 Order name: Urine Dipstick--Ancillary (enter results); Complete Time: 12:58 07/08 12:45 Order name: Urine --Ancillary (enter results); Complete Time: 12:58 07/08 13:02 Order name: HCG-Quantitative; Complete Time: 14:11 [facility] 07/08 13:07 Order name: Transvaginal OB; Complete Time: 14:30 EDMS 07/08 12:21 Order name: Urine Dipstick-Ancillary (obtain specimen); Complete Time: 14:01 [facility] 07/08 12:21 Order name: Labs collected and sent; Complete Time: 14: [facility] 07/08 14:14 Order name: Labs - recollect needed; Complete Time: 14:53 07/08 16:34 Order name: PO challenge; Complete Time: 16:34 sg Administered Medications: 13:29 Drug: Zofran 4 mg Route: PO; sg 14:00 Follow up: Response: No adverse reaction; No change in condition; Nausea unchanged sg 13:36 Not Given (Other Intervention Used): Zofran 4 mg IVP once; over 2 minutes sg 14:59 Not Given (Other Intervention Used): NS 0.9% 2000 ml IV at 1 bolus Per protocol; 1000 sg mL bolus 14:59 Not Given (Other Intervention Used): Benadryl 50 mg IVP once sg 15:20 Drug: Tylenol 500 mg Route: PO; sg 16:02 Follow up: Response: No adverse reaction; Pain is decreased sg 16:00 Drug: Zofran 4 mg Route: PO; sg 16:00 Drug: Benadryl 25 mg Route: PO; sg Disposition: 07/08/18 14:54 Discharged to Home. Impression: related conditions, unspecified - possible ectopic , stable . - Condition is Stable. - Discharge Instructions: Threatened Miscarriage, [id number]. - Prescriptions for pyridoxine (vitamin B6) - take 1 tablet by ORAL route 2-3 times daily; 30 tablet. Benadryl 25 mg Oral Capsule - take 1 capsule by ORAL route every 6 hours As needed; 30 tablet. Tylenol 325 mg Oral Tablet - take 2 tablet by ORAL route every 6 hours as needed; 1 bottle. - Medication Reconciliation Form, Thank You Letter, Antibiotic Education, Prescription Opioid Use form. - Follow up: Sonido Jordan MD; When: Tomorrow; Reason: Continuance of care. Signatures: Dispatcher [employer] EDCA Bess Soto Steven, RN RN Laisha Lamb RN RN Aaron Coto MD MD ma2 Chela Nelson lt1 Corrections: (The following items were deleted from the chart) 13:07 13:02 OB Complete+US.RAD.MARYZ ordered. [facility] 16:38 14:54 07/08/2018 14:54 Discharged to Home. Impression: related conditions, lt1 unspecified - possible ectopic , stable . Condition is Stable. Prescriptions for Tylenol-Codeine #3 300-30 mg Oral Tablet - take 2 tablet by ORAL route every 6 hours As needed; 30 tablet, Zofran 4 mg Oral Tablet - take 1 tablet by ORAL route every 12 hours As needed; 20 tablet. and Forms are Medication Reconciliation Form, Thank You Letter, Antibiotic Education, Prescription Opioid Use. Follow up: Sonido Jordan; When: Tomorrow; Reason: Continuance of care. [email or web address]
[2018-07-08] MEDS ORDERED: ACETAMINOPHEN 500 MG TAB ONE (15:35)
[2018-07-08] MEDS ORDERED: DIPHENHYDRAMINE 12.5MG/5ML LIQ ONE (16:04)
[2018-07-08 22:04] VITALS: BP 120/71; TEMP 97.9; O2SAT 100
== END 2018-07-08 16:38 | disposition home or self-care (01) ==
LOC: ER 11:47
DX: O26.891 Other specified pregnancy related conditions, first trimester (principal); R19.09 Other intra-abdominal and pelvic swelling, mass and lump; Z3A.01 Less than 8 weeks gestation of pregnancy
CPT/HCPCS: 36415; 76817; 80048; 80076; 81003; 81025; 83690; 84702; 99283; J2405; J7030

== ENCOUNTER 2018-09-29 10:31 | Emergency (ER) | payer OTHER ==
--- OUTSIDE RECORDS SUMMARY | 2018-09-29 10:37 | XMS REPORT ---
:1995 [facility] Address [address] [place] [address] Dr. Song [address] [place] [address] Care Team Providers Name Role Phone Unavailable Unavailable Unavailable Problems This patient has no known problems. Allergies, Adverse Reactions, Alerts This patient has no known allergies or adverse reactions. Medications This patient has no known medications.
--- OUTSIDE RECORDS SUMMARY | 2018-09-29 10:37 | XMS REPORT | Summary of Care ---
:1995 Author Organization [facility] Address [address] [place] [address] Care Team Providers Name Role Phone Cherie Chung [facility] Primary Care Provider Encounter Details Date Type Department Care Team Description 09/12/2018 Letter (Out) [facility] Cherie Chung, [facility]INE[facility] [address] [facility] [address] [place] [address] [place] [address] Allergies No Known Allergiesdocumented as of this encounter (statuses as of 09/12/2018) Medications Medication Sig Dispensed Refills Start Date End Date Status proMETHazine 25 mg Take 1 tablet by 30 tablet 3 07/29/2018 Active tabletIndications: mouth every 4 Nausea and vomiting (four) hours as during prior needed for Nausea to 22 weeks gestation and Vomiting (N/V). PNV 67-iron ps-folate Take 1 capsule by 60 capsule 6 07/29/2018 Active no.1-dha (VITAFOL mouth daily. ULTRA) 29 mg iron- 1 mg-200 mg CapIndications: High risk , antepartum PNV 67-iron ps-folate Take 1 capsule by 30 capsule 6 08/29/2018 Active no.1-dha (VITAFOL mouth daily. ULTRA) 29 mg iron- 1 mg-200 mg CapIndications: High risk , antepartum documented as of this encounter (statuses as of 09/12/2018) Active Problems Problem Noted Date Threatened 07/09/2018 High risk , antepartum 07/09/2018 Adult BMI <19 kg/sq m 07/09/2018 History of pre-eclampsia in prior , currently 03/04/2017 Estimated Date of Delivery Comments Yes 03/05/2019 Based on Ultrasound documented as of this encounter (statuses as of 09/12/2018) Resolved Problems Problem Noted Date Resolved Date Screening examination for STD (sexually transmitted disease) 09/30/201707/09 Late care affecting in third trimester 03/04/20172017 Supervision of high-risk , third trimester 03/04/2017 09/30/2017 Insufficient care in third trimester 03/04/2017 09/30/2017 Closed fracture of right foot, initial encounter 03/04/2017 09/30/2017 Multiparity 03/04/2017 09/30/2017 Edema, unspecified type 03/04/2017 09/30/2017 Elevated blood pressure reading without diagnosis of 03/04/2017 03/05/2017 hypertension 35 weeks gestation of 03/04/2017 09/30/2017 Preeclampsia 03/04/2017 09/30/2017 Supervision of high risk , antepartum, second 01/14/2017 03/04/2017 trimester Late care affecting , antepartum, second 01/14/20172017 trimester Insufficient care, second trimester 01/14/2017 03/04/2017 Missed menses 01/14/2017 03/05/2017 Well woman exam 05/14/2016 07/09/2018 Other general counseling and advice for contraceptive 05/14/2016 01/14/2017 management care and examination of lactating mother 04/23/2016 05/14/2016 Anemia of mother in , condition 04/23/2016 01/14/2017 (spontaneous vaginal delivery) 03/31/2016 04/23/2016 Severe pre-eclampsia, with delivery 03/31/2016 04/23/2016 Liveborn infant by vaginal delivery 03/31/2016 04/23/2016 37 weeks gestation of 03/29/2016 04/23/2016 Boil 03/06/2016 04/23/2016 Multiparity 02/09/2016 03/08/2016 IUGR (intrauterine growth restriction) affecting care of 12/06/20152016 mother, first trimester, fetus 1 Overview: Weekly follow up for LITO and umbilical artery doppler are recommended, q3/4 week growth, nst 2x week starting at 30 UTI in , antepartum, second trimester 12/06/2015 03/08/2016 Subchorionic bleed 10/11/2015 03/08/2016 Maternal anemia in , antepartum 09/22/2015 04/23/2016 Supervision of other high risk , antepartum 09/21/2015 04/23/2016 Nausea and vomiting during prior to 22 weeks 09/21/2015 03/08/2016 gestation Contraceptive management 07/22/2015 09/21/2015 Dysmenorrhea 07/22/2015 09/21/2015 Depo-Provera contraceptive status 09/08/2012 07/09/2018 Well woman exam 09/08/2012 09/21/2015 Overview: ICD10 Diagnosis Term Copyright Expert Utility Rubella immune 09/08/2012 07/22/2015 Immune to varicella 09/08/2012 07/22/2015 Anemia 03/11/2012 09/08/2012 First degree perineal laceration during delivery 03/10/2012 09/08/2012 Overview: ICD10 Diagnosis Term Copyright Expert Utility Insufficient care 2012 09/08/2012 Teen 2012 09/08/2012 Streptococcus B carrier or suspected carrier 2012 09/08/2012 documented as of this encounter (statuses as of 09/12/2018) Immunizations Name Administration Dates Next Due HPV9 03/06/2017, 05/14/2016, 03/31/2016 Rubella 10/01/2011 Td 02/11/2007 Tdap 03/04/2017, 02/13/2016 documented as of this encounter Social History Tobacco Use Types Packs/Day Years Used Date Never Smoker Smokeless Tobacco: Never Used Alcohol Use Drinks/Week oz/Week Comments No 0 Standard drinks or equivalent 0.0 Estimated Date of Delivery Comments Yes 03/05/2019 Based on Ultrasound Sex Assigned at Date Recorded Not on file Job Start Date Occupation Industry Not on file Not on file Not on file Travel History Travel Start Travel End No recent travel history available. documented as of this encounter Last Filed Vital Signs Not on filedocumented in this encounter Plan of Treatment Date Type Specialty Care Team Description 09/18/2018 Routine Visit OB Satellites Eileen Power, MARINE ENGINEERING PROFESSOR [address] [place] [address] [phone] Health Maintenance Due Date Last Done Comments PAP SMEAR 07/21/2018 07/22/2015 INFLUENZA VACCINE 10/12/2018 DTaP,Tdap,and Td Vaccines (4 03/04/2027 03/04/2017, - Td) 02/13/2016, 02/11/2007 HPV VACCINES Completed 03/06/2017, 05/14/2016, 03/31/2016 PNEUMOCOCCAL 0-64 YEARS Aged Out No longer eligible based COMBINED SERIES on patient's age to complete this topic documented as of this encounter Results Not on filedocumented in this encounter Insurance Payer Benefit Plan / Subscriber ID Effective Phone Address Type Group Dates [facility] xxxxxxxxx 2018-Prese 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
--- OUTSIDE RECORDS SUMMARY | 2018-09-29 10:37 | XMS REPORT | Summary of Care ---
:1995 Author Organization [facility] Address [address] [place] [address] Care Team Providers Name Role Phone Cherie Chung SOFTWARE TEAM LEADER Primary Care Provider Reason for Visit Reason Comments DNKA Encounter Details Date Type Department Care Team Description 09/12/2018 Telephone [facility], [facility] DNKA [address] [facility] [address] [place] [address] [place] [address] [phone] Allergies No Known Allergiesdocumented as of this [...] Severe pre-eclampsia, with delivery 03/31/2016 04/23/2016 Liveborn by vaginal delivery 03/31/2016 04/23/2016 37 weeks [...] exam 09/08/2012 09/21/2015 Overview: ICD10 Diagnosis Term Head Of Global [employer]s Utility Rubella immune 09/08/2012 07/22/2015 Immune to varicella 09/08/2012 07/22/2015 Anemia 03/11/2012 09/08/2012 First degree perineal laceration during delivery 03/10/2012 09/08/2012 Overview: ICD10 Diagnosis Term Head Of Global Strategic Partnerships Utility Insufficient care 2012 09/08/2012 Teen 2012 [...] 09/18/2018 Routine Visit OB Satellites Eileen Power, SOFTWARE TEAM LEADER [address] [place] [address] [phone] Health Maintenance Due Date Last Done Comments [...] ID Effective Phone Address Type Group Dates [facility] xxxxxxxxx 2018-Prese [address] Medicaid [facility] nt [id number] - MANAGED MEDICAID [place], [place] [id number] [facility] MEDICAID OF xxxxxxxxx 2018-Prese [phone] Medicaid [place] nt [id number] [place] [address] documented as of this encounter Advance Directives Type Date Recorded Patient Curb Hop Explanation Advance Directives and Living Will Power of Net Solutions Architect Name Relationship Healthcare Agent Communication Relationship Daniel Tadeo Floresenson Mother Primary healthcare agent Kym De La Torre Grandparent First alternate healthcare [phone] agent (Mobile)
[2018-09-29 12:09] LABS: Urine Bacteria <20 /HPF (<20); Urine Culture Reflex Order REFLEXED; Urine RBC TNTC /HPF (NONE SEEN)
[2018-09-29 12:24] LABS: Absolute Lymphocytes (CBC) 1.7 K/uL (0.7-4.9); Basophils % 0.6 % (0-1.3); Hematocrit 33.8 % (36.0-45.0); Lymphocytes % 28.2 % (15.3-44.8); MPV 7.7 fL (7.6-11.3); RBC Red Blood Cell Count 4.31 M/uL (3.86-4.86)
[2018-09-29 12:41] LABS: BUN Blood Urea Nitrogen 10 mg/dL (7-18); Bicarbonate 26 mmol/L (21-32); Glucose Level 79 mg/dL (74-106); HCG, Quantitative 4404 mIU/mL (1-3); Potassium 3.8 mmol/L (3.5-5.1); Sodium Level 140 mmol/L (136-145)
[2018-09-29 13:14] LABS: Urine Blood 3+ (NEG); Urine Glucose TRACE (NEG); Urine Protein NEGATIVE (NEG)
--- NOTE | 2018-09-29 13:22 | RAD REPORT ---
EXAM DESCRIPTION: US - 1St Trimest Single 1St Fetus - 09/29/2018 12:44 pm CLINICAL HISTORY: , vaginal bleeding COMPARISON: July 08, 2018 TECHNIQUE: Endovaginal sonography performed FINDINGS: Uterus measures 10.2 x 5.7 x 6.7 cm. No myometrial mass. Endometrium is approximately 6 mm in thickness. There is no normal shaped gestational sac. A 2 centim eter heterogeneous collection in the lower uterine segment and cervix region could represent a collap sed gestational sac or may represent retained hemorrhagic material. Within this structure there is no evidence for yolk sac or pole. Minimal size cyst is identified of the left ovary. No suspiciou s left adnexal mass. Right ovary was not identifiable, obscured by adjacent bowel. No suspicious bloo d or fluid collection in the cul de sac. IMPRESSION: No normal IUP is present in the uterus. No suspicion for ectopic . A 2 centimeter heterogeneous collection in the lower uterine segment and proximal cervical canal is p robably hemorrhagic material to but could potentially represent a collapsed gestational sac.
--- NOTE | 2018-09-29 13:45 | EDPHYS ---
Physician Documentation [facility] Name: Tristan Song Age: 23 yrs Sex: Female : 1995 Arrival Date: 09/29/2018 Time: 10:33 Bed 15 Private MD: ED Physician Andrews Shields HPI: 09/29 13:46 This 23 yrs old Black Female presents to ER via Ambulatory with complaints of Vaginal gs Bleeding, + Preg <12wks, Pelvic Pain. 13:46 The patient presents to the emergency department with vaginal bleeding. The estimated gs gestational age is 8 weeks. Associated signs and symptoms: Pertinent negatives: abdominal pain, shortness of breath, vomiting. The patient has experienced a previous episode, approximately 3 weeks ago. Historical: - Allergies: 11:04 No Known Allergies; iw - Home Meds: 11:04 None [Active]; iw - PMHx: 11:04 Kidney stones; iw - PSHx: 11:04 None; iw - Immunization history:: Adult Immunizations up to date. - Social history:: The patient lives at home, Smoking status: Patient/guardian denies using tobacco. - Ebola Screening: : Patient negative for fever greater than or equal to 101.5 degrees Fahrenheit, and additional compatible Ebola Virus Disease symptoms Patient denies exposure to infectious person Patient denies travel to an Ebola-affected area in the 21 days before illness onset No symptoms or risks identified at this time. ROS: 13:46 All other systems are negative. gs Exam: 13:46 Head/Face: Normocephalic, atraumatic. Eyes: Pupils equal round and reactive to light, gs extra-ocular motions intact. Lids and lashes normal. Conjunctiva and sclera are non-icteric and not injected. Cornea within normal limits. Periorbital areas with no swelling, redness, or edema. ENT: Nares patent. No nasal discharge, no septal abnormalities noted. Tympanic membranes are normal and external auditory canals are clear. Oropharynx with no redness, swelling, or masses, exudates, or evidence of obstruction, uvula midline. Mucous membranes moist. Neck: Trachea midline, no thyromegaly or masses palpated, and no cervical lymphadenopathy. Supple, full range of motion without nuchal rigidity, or vertebral point tenderness. No Meningismus. Chest/axilla: Normal chest wall appearance and motion. Nontender with no deformity. No lesions are appreciated. Cardiovascular: Regular rate and rhythm with a normal S1 and S2. No gallops, murmurs, or rubs. Normal PMI, no JVD. No pulse deficits. Respiratory: Lungs have equal breath sounds bilaterally, clear to auscultation and percussion. No rales, rhonchi or wheezes noted. No increased work of breathing, no retractions or nasal flaring. Abdomen/GI: Soft, non-tender, with normal bowel sounds. No distension or tympany. No guarding or rebound. No evidence of tenderness throughout. Back: No spinal tenderness. No costovertebral tenderness. Full range of motion. Skin: Warm, dry with normal turgor. Normal color with no rashes, no lesions, and no evidence of cellulitis. MS/ Extremity: Pulses equal, no cyanosis. Neurovascular intact. Full, normal range of motion. Neuro: Awake and alert, GCS 15, oriented to person, place, time, and situation. Cranial nerves II-XII grossly intact. Motor strength 5/5 in all extremities. Sensory grossly intact. Cerebellar exam normal. Normal gait. 13:46 Constitutional: The patient appears in no acute distress, alert, awake. 13:46 : Pelvic Exam: The exam is refused by the patient/guardian. The risks and consequences are understood by the patient. Vital Signs: 11:03 BP 111 / 78; Pulse 88; Resp 16; Temp 98.2; Pulse Ox 100% on R/A; Weight 61.23 kg; iw Height 5 ft. 9 in. (175.26 cm); Pain 8/10; 12:51 BP 116 / 67; Pulse 73; Resp 16; Pulse Ox 100% ; bp 14:07 BP 110 / 83; Pulse 78; Resp 16; Temp 98; Pulse Ox 100% ; bp 11:03 Body Mass Index 19.94 (61.23 kg, 175.26 cm) iw MDM: 11:22 Patient medically screened. gs 13:46 Differential diagnosis: threatened Ab, inevitable Ab, complete Ab. Data reviewed: vital gs signs, nurses notes. Counseling: I had a detailed discussion with the patient and/or guardian regarding: the historical points, exam findings, and any diagnostic results supporting the discharge/admit diagnosis, lab results, radiology results, the need for outpatient follow up. Response to treatment: the patient's symptoms have markedly improved after treatment, and as a result, I will discharge patient. 09/29 10:58 Order name: Urine Microscopic Only; Complete Time: 13:27 09/29 11:24 Order name: Quantitative Hcg; Complete Time: 13: 09/29 11:24 Order name: Abo/rh Typing; Complete Time: 13:27 09/29 11:24 Order name: Basic Metabolic Panel; Complete Time: 13:27 09/29 11:24 Order name: CBC with Diff; Complete Time: 13: 09/29 11:55 Order name: Urine Dipstick--Ancillary (enter results); Complete Time: 13:27 09/29 10:58 Order name: Urine Test (obtain specimen); Complete Time: 11:28 09/29 10:58 Order name: Urine Dipstick-Ancillary (obtain specimen); Complete Time: 11:28 09/29 11:24 Order name: IV Saline Lock; Complete Time: 11: 09/29 11:24 Order name: Labs collected and sent; Complete Time: 11:41 09/29 11:24 Order name: NPO; Complete Time: 11:37 09/29 11:24 Order name: US 1st Trimest Single 1st Fetus; Complete Time: 13: 09/29 11:55 Order name: Urine --Ancillary (enter results); Complete Time: 13:27 09/29 12:13 Order name: Urine Culture [facility] 09/29 12:01 Order name: Labs - recollect needed; Complete Time: 12:12 bd Administered Medications: No medications were administered Disposition: 09/29/18 13:44 Discharged to Home. Impression: Incomplete spontaneous without complication. - Condition is Stable. - Discharge Instructions: Incomplete Miscarriage. - Medication Reconciliation Form, Thank You Letter, Antibiotic Education, Prescription Opioid Use form. - Follow up: Private Physician; When: 1 - 2 days; Reason: Re-evaluation by your physician. Signatures: Dispatcher [employer] [facility] Bess Soto Irene, RN RN iw Andrews Shields MD MD gs Peltier, Brian, RN RN bp Corrections: (The following items were deleted from the chart) 14:08 13:44 09/29/2018 13:44 Discharged to Home. Impression: Incomplete spontaneous bp without complication. Condition is Stable. Forms are Medication Reconciliation Form, Thank You Letter, Antibiotic Education, Prescription Opioid Use. Follow up: Private Physician; When: 1 - 2 days; Reason: Re-evaluation by your physician. gs
--- NOTE | 2018-09-29 13:45 | ER ---
Nurse's Notes [facility] Name: Tristan Song Age: 23 yrs Sex: Female : 1995 Arrival Date: 09/29/2018 Time: 10:33 Bed 15 Private MD: Diagnosis: Incomplete spontaneous without complication Presentation: 09/29 11:01 Presenting complaint: Patient states: approx 8 weeks , , verified iw with US, started having clotting , back pain, pelvic pain last night. Transition of care: patient was not received from another setting of care. Onset of symptoms was September 28, 2018. Risk Assessment: Do you want to hurt yourself or someone else? Patient reports no desire to harm self or others. Initial Sepsis Screen: Does the patient meet any 2 criteria? No. Patient's initial sepsis screen is negative. Does the patient have a suspected source of infection? No. Patient's initial sepsis screen is negative. Care prior to arrival: None. 11:01 Method Of Arrival: Ambulatory iw 11:01 Acuity: SHALA 3 iw Triage Assessment: 11:05 General: Appears in no apparent distress. comfortable, Behavior is cooperative, bp appropriate for age, anxious. Pain: Complains of pain in back and pelvis. EENT: No deficits noted. Neuro: No deficits noted. Cardiovascular: No deficits noted. Respiratory: No deficits noted. GI: No signs and/or symptoms were reported involving the gastrointestinal system. : Reports vaginal bleeding that is. Derm: No deficits noted. Musculoskeletal: No deficits noted. Historical: - Allergies: 11:04 No Known Allergies; iw - Home Meds: 11:04 None [Active]; iw - PMHx: 11:04 Kidney stones; iw - PSHx: 11:04 None; iw - Immunization history:: Adult Immunizations up to date. - Social history:: The patient lives at home, Smoking status: Patient/guardian denies using tobacco. - Ebola Screening: : Patient negative for fever greater than or equal to 101.5 degrees Fahrenheit, and additional compatible Ebola Virus Disease symptoms Patient denies exposure to infectious person Patient denies travel to an Ebola-affected area in the 21 days before illness onset No symptoms or risks identified at this time. Screenin:18 Abuse screen: Denies threats or abuse. Denies injuries from another. Nutritional bp screening: No deficits noted. Tuberculosis screening: No symptoms or risk factors identified. Fall Risk None identified. Assessment: 11:05 Obstetrical Assessment: General assessment: awake and alert, skin warm and dry, bp respirations even and unlabored, Rupture of membranes noted. General: SEE TRIAGE NOTE. 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 bp 12:51 Reassessment: PT RETURNED FROM U/S. bp 14:07 Reassessment: PT D/C HOME AMBULATORY WITH FAMILY, DX WITH INCOMPLETE AB. bp Vital Signs: 11:03 BP 111 / 78; Pulse 88; Resp 16; Temp 98.2; Pulse Ox 100% on R/A; Weight 61.23 kg; iw Height 5 ft. 9 in. (175.26 cm); Pain 8/10; 12:51 BP 116 / 67; Pulse 73; Resp 16; Pulse Ox 100% ; bp 14:07 BP 110 / 83; Pulse 78; Resp 16; Temp 98; Pulse Ox 100% ; bp 11:03 Body Mass Index 19.94 (61.23 kg, 175.26 cm) iw ED Course: 10:33 Patient arrived in ED. as 10:35 Alison Roldan FNP-C is PHCP. kb 10:35 Flex Kendrick MD is Attending Physician. kb 10:57 Andrews Shields MD is Attending Physician. gs 11:03 Triage completed. iw 11:03 Arm band placed on. iw 11:16 Michele Mcadams, RN is Primary Nurse. bp 11:18 Patient has correct armband on for positive identification. Bed in low position. Call bp light in reach. Side rails up X2. 11:34 Radiology exam delayed due to putting in iv and doing blood- will call when ready for hr u/s. 12:21 Lab(s) recollected, by me, sent to lab. iw 12:40 US 1st Trimest Single 1st Fetus In Process Unspecified. EDMS 14:05 No provider procedures requiring assistance completed. Patient did not have IV access bp during this emergency room visit. Administered Medications: No medications were administered Outcome: 13:44 Discharge ordered by . gs 14:08 Discharged to home ambulatory, with family. bp 14:08 Condition: stable 14:08 Discharge instructions given to patient, Instructed on discharge instructions, follow up and referral plans. Demonstrated understanding of instructions, follow-up care. 14:08 Patient left the ED. bp Signatures: Dispatcher [employer] EDMS Alison Roldan, FIONA-Ro DATA MANAGEMENT ENGINEER-Smitha Diaz Amelia as Williams, Irene, RN RN iw Andrews Shields MD MD gs Peltier, Brian, MAHIN RN bp
[2018-09-29 14:14] VITALS: O2SAT 100
[2018-09-29 14:19] VITALS: BP 110/83; TEMP 98
== END 2018-09-29 14:08 | disposition home or self-care (01) ==
LOC: ER 10:31
DX: O03.4 Incomplete spontaneous abortion without complication (principal); Z3A.08 8 weeks gestation of pregnancy; Z87.442 Personal history of urinary calculi
CPT/HCPCS: 36415; 76801; 80048; 81003; 81015; 81025; 84702; 85025; 86900; 86901; 87086; 87088; 99283

== ENCOUNTER 2024-12-01 11:09 | Emergency (ER) | payer OTHER ==
--- OUTSIDE RECORDS SUMMARY | 2024-12-01 11:18 | XMS REPORT | Continuity of Care Document ---
Author Name Unknown Address [address] [facility] [address] [place] [address] [facility] Address [address] [facility] [address] [place] [address] Care Team Providers Care Machinist Mate Name Role Phone PCP, PATIENT DOES NOT HAVE A Primary Care Physic bravo Unavailable DANYELL PIZANO Attending Clinician Unavail able Danyell Simpson Attending Clinician + Lab, Desiree Attending Clinician Unavailable Felisha Skelton Attending Clinician [phone] GUS STEWART Attending Clinician Unavailable GUS STEWART Attending Clinician Unavailable Gus Stewart DO Attending Clinician [phone] Attending Clinician Unavaila ble Visit, Desiree Nurse Attending Clinician Unava ilAlondra Crain CNM Attending Clinician [phone] Danyell Simpson Attending Clinician + ProviderDesiree Temp Attending Clinician Kayley vaCherie Dumont Attending Clinician + [phone] Doctor Unassigned, [place] Attending Clinician U CHERIE Armstrong Attending Clinician Eileen Griffiths Attending Clinician EILEEN ORTIZ Attending Clinician YAA Vela Attending Clinician GUS Joy Admitting Clinician Unavailable Payers Payer Name Policy Type Policy Number Effective Date Expirati on Date Source [facility] MEDICAID [id number] 2019 00:00:00 [facility] EPO [id number] 2024 00:00:00 MEDICAID PENDING PENDING 2024 00:00:00 MED[place] [id number] 2024 00:00:00 2024 00:00:00 Problems Condition Name Condition Details Condition Category Status Onset Date Resolution Date Last Treatment Date Treating Clinician Comments Source Depo-Prove ra contracept nick status Depo-Prove ra contracept nick status Disease Active 09-08 00:00: 00 [facility] Other general counseling and advice for contracept nick management Other general counseling and advice for contracept nick management Disease Resolve d 2019-0 7-15 00:00: 00 2022-01-10 00:00:00 2022-01-10 20:19:06 [facility] Encounter for IUD removal Encounter for IUD removal Disease Resolve d 2019-0 7-20 00:00: 00 2020-11-15 00:00:00 2020-11-15 10:29:26 [facility] Axillary abscess Axillary abscess Disease Resolve d 2019-0 7-15 00:00: 00 2020-11-15 00:00:00 2020-11-15 10:29:26 [facility] Elevated blood pressure affecting in third trimester, antepartum Elevated blood pressure affecting in third trimester, antepartum Disease Resolve d 2019-0 5-21 00:00: 00 2019-08-26 00:00:00 2019-08-26 15:05:35 [facility] Pain of round ligament during Pain of round ligament during Disease Resolve d 2019-0 5-07 00:00: 2019-08-26 00:00:00 2019-08-26 15:05:24 [facility] IUGR (intrauter ine growth restrictio n) affecting care of mother IUGR (intrauter ine growth restrictio n) affecting care of mother Disease Resolve d 2019-0 4-21 00:00: 00 2019-08-26 00:00:00 2019-08-26 15:05:25 [facility] Back pain in Back pain in Disease Resolve d 2019-0 4-20 00:00: 00 2019-08-26 00:00:00 2019-08-26 15:05:34 [facility] Anemia of mother in , antepartum Anemia of mother in , antepartum Disease Resolve d 2019-0 3-24 00:00: 00 2019-08-26 00:00:00 2019-08-26 15:05:33 [facility] Supervisio n of high-risk with insufficie nt care Supervisio n of high-risk with insufficie nt care Disease Resolve d 3-23 00:00: 00 2019-08-26 00:00:00 2019-08-26 15:05:29 [facility] Multiparit y Multiparit y Disease Resolve d 3-23 00:00: 00 2019-08-26 00:00:00 2019-08-26 15:05:30 [facility] History of miscarriag e History of miscarriag e Disease Resolve d 2019-0 3-23 00:00: 00 2019-08-26 00:00:00 2019-08-26 15:05:31 [facility] History of delivery History of delivery Disease Resolve d 2019- 3-23 00:00: 00 2019-08-26 00:00:00 2019-08-26 15:05:31 [facility] History of IUGR (intrauter ine growth retardatio n) and stillbirth , currently History of IUGR (intrauter ine growth retardatio n) and stillbirth , currently Disease Resolve d 2019- 3-23 00:00: 00 2019-08-26 00:00:00 2019-08-26 15:05:32 [facility] High risk , antepartum High risk , antepartum Disease Resolve d 2018- 5-29 00:00: 00 2019-08-26 00:00:00 2019-08-26 15:05:28 [facility] History of pre-eclamp bernardo in prior , currently History of pre-eclamp bernardo in prior , currently Disease Resolve d 2017-0 1-22 00:00: 00 2019-08-26 00:00:00 2019-08-26 15:05:27 [facility] 35 weeks gestation of 35 weeks gestation of Disease Resolve d 2017-0 1-22 00:00: 00 2019-08-26 00:00:00 2019-08-26 15:05:28 [facility] (spontaneo us vaginal delivery) (spontaneo us vaginal delivery) Disease Resolve d 2016-0 2-18 00:00: 00 2019-08-26 00:00:00 2019-08-26 15:05:26 [facility] History of pre-eclamp bernardo History of pre-eclamp bernardo Disease Resolve d 05-03 00:00: 00 2019-05-04 00:00:00 2019-05-04 09:26:30 [facility] Personal history of pre-term labor Personal history of pre-term labor Disease Resolve d 05-03 00:00: 00 2019-05-04 00:00:00 2019-05-04 09:26:38 [facility] Threatened Threatened Disease Resolve d 5-29 00:00: 00 2019-05-04 00:00:00 2019-05-04 09:26:41 [facility] Adult BMI <19 kg/sq m Adult BMI <19 kg/sq m Disease Resolve d 2018- 5-29 00:00: 00 2019-05-04 00:00:00 2019-05-04 09:26:15 [facility] Screening examinatio n for STD (sexually transmitte d disease) Screening examinatio n for STD (sexually transmitte d disease) Disease Resolve d 2017-0 8-20 00:00: 00 2018-07-09 00:00:00 2018-07-09 15:09:08 [facility] Late care affecting in third trimester Late care affecting in third trimester Disease Resolve d 03-04 00:00: 2017-09-30 00:00:00 2017-09-30 13:21:10 [facility] Supervisio n of high-risk , third trimester Supervisio n of high-risk , third trimester Disease Resolve d 03-04 00:00: 00 2017-09-30 00:00:00 2017-09-30 13:21:13 [facility] Insufficie nt care in third trimester Insufficie nt care in third trimester Disease Resolve d 03-04 00:00: 00 2017-09-30 00:00:00 2017-09-30 13:21:16 [facility] Closed fracture of right foot, initial encounter Closed fracture of right foot, initial encounter Disease Resolve d 03-04 00:00: 00 2017-09-30 00:00:00 2017-09-30 13:21:20 [facility] Multiparit y Multiparit y Disease Resolve d 03-04 00:00: 2017-09-30 00:00:00 2017-09-30 13:21:22 [facility] Edema, unspecifie d type Edema, unspecifie d type Disease Resolve d 03-04 00:00: 00 2017-09-30 00:00:00 2017-09-30 13:21:28 [facility] Preeclamps ia Preeclamps ia Disease Resolve d 03-04 00:00: 00 2017-09-30 00:00:00 2017-09-30 13:21:31 [facility] Elevated blood pressure reading without diagnosis of hypertensi on Elevated blood pressure reading without diagnosis of hypertensi on Disease Resolve d 03-04 00:00: 00 2017-03-05 00:00:00 2017-03-06 06:29:37 [facility] Missed menses Missed menses Disease Resolve d 2016-02 2-04 00:00: 00 2017-03-05 00:00:00 2017-03-05 08:40:09 [facility] Supervisio n of high risk , antepartum , second trimester Supervisio n of high risk , antepartum , second trimester Disease Resolve d 2016-02 2-04 00:00: 00 2017-03-04 00:00:00 2017-03-04 10:56:40 [facility] Late care affecting , antepartum , second trimester Late care affecting , antepartum , second trimester Disease Resolve d 2016-02 2 00:00: 00 2017-03-04 00:00:00 2017-03-04 10:56:44 [facility] Insufficie nt care, second trimester Insufficie nt care, second trimester Disease Resolve d 2016-02 2 00:00: 00 2017-03-04 00:00:00 2017-03-04 10:56:46 [facility] Other general counseling and advice for contracept nick management Other general counseling and advice for contracept nick management Disease Resolve d 403 00:00: 00 2017-01-14 00:00:00 2017-01-14 13:11:33 [facility] Anemia of mother in , condition Anemia of mother in , condition Disease Resolve d 04-23 00:00: 00 2017-01-14 00:00:00 2017-01-14 13:11:30 [facility] care and examinatio n of lactating mother care and examinatio n of lactating mother Disease Resolve d 04-23 00:00: 00 2016-05-14 00:00:00 2016-05-14 11:52:54 [facility] Severe pre-eclamp bernardo, with delivery Severe pre-eclamp bernardo, with delivery Disease Resolve d 2-18 00:00: 00 2016-04-23 00:00:00 2016-04-23 12:04:41 [facility] Liveborn infant by vaginal delivery Liveborn by vaginal delivery Disease Resolve d 2-18 00:00: 00 2016-04-23 00:00:00 2016-04-23 12:04:48 [facility] 37 weeks gestation of 37 weeks gestation of Disease Resolve d 2-16 00:00: 00 2016-04-23 00:00:00 2016-04-23 12:04:53 [facility] Boil Boil Disease Resolve d 1-24 00:00: 00 2016-04-23 00:00:00 2016-04-23 12:04:52 [facility] IUGR (intrauter ine growth restrictio n) affecting care of mother, first trimester, fetus 1 IUGR (intrauter ine growth restrictio n) affecting care of mother, first trimester, fetus 1 Disease Resolve d 2015-02 0-25 00:00: 00 2016-04-23 00:00:00 2021-08-27 00:42:52 [facility] Maternal anemia in , antepartum Maternal anemia in , antepartum Disease Resolve d 8-11 00:00: 00 2016-04-23 00:00:00 2016-04-23 12:04:45 [facility] Supervisio n of other high risk , antepartum Supervisio n of other high risk , antepartum Disease Resolve d 8- 00:00: 00 2016-04-23 00:00:00 2016-04-23 12:04:29 [facility] Multiparit y Multiparit y Disease Resolve d 2015-02 2-29 00:00: 00 2016-03-08 00:00:00 2016-03-08 11:34:01 [facility] UTI in , antepartum , second trimester UTI in , antepartum , second trimester Disease Resolve d 2015-02 0- 00:00: 00 2016-03-08 00:00:00 2016-03-08 11:33:47 [facility] Subchorion ic bleed Subchorion ic bleed Disease Resolve d 8-30 00:00: 00 2016-03-08 00:00:00 2016-03-08 11:34:04 [facility] Nausea and vomiting during prior to 22 weeks gestation Nausea and vomiting during prior to 22 weeks gestation Disease Resolve d 8-10 00:00: 00 2016-03-08 00:00:00 2016-03-08 11:34:03 [facility] Contracept nick management Contracept nick management Disease Resolve d 2016-0 6-10 00:00: 00 2015-09-21 00:00:00 2015-09-21 09:30:59 [facility] Dysmenorrh ea Dysmenorrh ea Disease Resolve d 07-21 00:00: 00 2015-09-21 00:00:00 2015-09-21 09:31:04 [facility] Well woman exam Well woman exam Disease Resolve d 09-08 00:00: 00 2015-09-21 00:00:00 2021-08-27 00:25:42 [facility] Rubella immune Rubella immune Disease Resolve d 09-08 00:00: 00 2015-07-22 00:00:00 2015-07-22 10:51:19 [facility] Immune to varicella Immune to varicella Disease Resolve d 09-08 00:00: 00 2015-07-22 00:00:00 2015-07-22 10:51:21 [facility] Anemia Anemia Disease Resolve d 03-11 00:00: 00 2012-09-08 00:00:00 2012-09-08 14:53:00 [facility] First degree perineal laceration during delivery First degree perineal laceration during delivery Disease Resolve d 03-10 00:00: 00 2012-09-08 00:00:00 2021-08-27 00:22:48 [facility] Insufficie nt care Insufficie nt care Disease Resolve d 03-09 00:00: 00 2012-09-08 00:00:00 2012-09-08 14:52:58 [facility] Teen Teen Disease Resolve d 03-09 00:00: 00 2012-09-08 00:00:00 2012-09-08 14:52:52 [facility] Streptococ cus B carrier or suspected carrier Streptococ cus B carrier or suspected carrier Disease Resolve d 03-09 00:00: 00 2012-09-08 00:00:00 2012-09-08 14:52:56 [facility] Allergies, Adverse Reactions, Alerts Allergy Name Allergy Type Status Severity Reaction(s) Onset Date Inactive Date Treating Clinician Comments Source NO KNOWN ALLERGIE S Drug Class Active [facility] Social History Social Habit Start Date Stop Date Quantity Comments Source ASSERTION 2024-02-26 00:00:00 [facility] History SDOH Alcohol Frequency [facility] History SDOH Alcohol Std Drinks [facility] History SDOH Alcohol Binge [facility] Alcoholic beverage intake 2024-03-25 00:00:00 2024-03-25 00:00:00 0 /d [facility] Exposure to SARS-CoV-2 (event) 2022-06-25 00:00:00 2022-07-05 07:48:00 Not sure [facility] Tobacco use and exposure 2022-01-09 00:00:00 2022-01-09 00:00:00 Smokeless tobacco non-user [facility] History of Social function 2020-11-15 00:00:00 2020-11-15 00:00:00 [facility] Alcohol intake 2020-05-16 00:00:00 2020-05-16 00:00:00 0 /d [facility] Alcohol Comment 2019-08-26 00:00:00 2019-08-26 00:00:00 occasionally [facility] Sex assigned at 1995 00:00:00 1995 00:00:00 [facility] Smoking Status Start Date Stop Date Source Never smoked tobacco [facility] Medications Ordered Medication Name Filled Medication Name Start Date Stop Date Current Medication? Ordering Clinician Indication Dosage Frequency Signature (SIG) Comments Components Source acetaminoph en (TYLENOL) tablet 650 mg 03-18 18:15: 00 03-18 18:04 :00 No 650mg 650 mg, Oral, ONCE, 1 dose, On Sat03/18/24 at 1215, YUNG [facility] medroxyPROG ESTERone (DEPO-PROVE RA) syringe 150 mg 2021-02 20:30: 00 Yes [id number] 150mg [facility] medroxyPROG ESTERone (DEPO-PROVE RA) injection 150 mg 10-17 15:30: 00 10-17 14:45 :35 No [id number] 150mg [facility] medroxyPROG ESTERone (DEPO-PROVE RA) syringe 150 mg 10-17 15:30: 00 10-17 14:46 :00 No [id number] [facility] medroxyPROG ESTERone (DEPO-PROVE RA) injection 150 mg 2020-02 16:00: 00 07-24 14:59 :00 No [id number] 150mg 150 mg, Intramuscu lar, [id number], 4 doses, First dose on Sat11/15/20 at 1100, Last dose on Sat07/25/21 at 1100, Routine [facility] No known medications 2020-02 10:41: 43 No [facility] ferrous sulfate 325 mg (65 mg iron) tablet 07-12 00:00: 00 11-15 00:00 :00 No [id number] 325mg Take 1 tablet by mouth 2 (two) times daily. [facility] acetaminoph en-codeine (TYLENOL-CO DEINE #3) 300-30 mg tablet 08-31 00:00: 00 11-15 00:00 :00 No [id number] 1{tbl} Take 1 tablet by mouth every 6 (six) hours as needed for Pain (scale 7-10). Indication s: acute pain [facility] hydroCHLORO thiazide 50 mg tablet 07-04 00:00: 11-15 00:00 :00 No [id number] 50mg Take 1 tablet by mouth daily. [facility] vitamin w/FA tablet 07-03 00:00: 11-15 00:00 :00 No [id number] 1{tbl} Take 1 tablet by mouth daily. [facility] docusate calcium 240 mg capsule 07-03 00:00: 11-15 00:00 :00 No [id number] 240mg Take 1 capsule by mouth once daily as needed for Constipati on. [facility] ibuprofen 600 mg tablet 0 07-03 00:00: 00 11-15 00:00 :00 No [id number] 600mg Take 1 tablet by mouth every 6 (six) hours as needed (Pain). Take with food or milk. [facility] Immunizations Ordered Immunization Name Filled Immunization Name Date Status Comments Source SARS-COV-2 COVID-19 PFIZER VACCINE 2020-12-01 00:00:00 Completed [facility] SARS-COV-2 COVID-19 PFIZER VACCINE 2020-12-01 00:00:00 Completed [facility] SARS-COV-2 COVID-19 PFIZER VACCINE 2020-12-01 00:00:00 Completed [facility] SARS-COV-2 COVID-19 PFIZER VACCINE 2020-12-01 00:00:00 Completed [facility] SARS-COV-2 COVID-19 PFIZER VACCINE 2020-12-01 00:00:00 Completed [facility] SARS-COV-2 COVID-19 PFIZER VACCINE 2020-12-01 00:00:00 Completed [facility] SARS-COV-2 COVID-19 PFIZER VACCINE 2020-12-01 00:00:00 Completed [facility] SARS-COV-2 COVID-19 PFIZER VACCINE 2020-12-01 00:00:00 Completed [facility] SARS-COV-2 COVID-19 PFIZER VACCINE 2020-12-01 00:00:00 Completed [facility] SARS-COV-2 COVID-19 PFIZER VACCINE 2020-12-01 00:00:00 Completed [facility] SARS-COV-2 COVID-19 PFIZER VACCINE 2020-12-01 00:00:00 Completed [facility] SARS-COV-2 COVID-19 PFIZER VACCINE 2020-12-01 00:00:00 Completed [facility] TD, NOS 2020-06-17 00:00:00 Completed [facility] Rubella 2020-06-17 00:00:00 Completed [facility] HPV9 2020-06-17 00:00:00 Completed [facility] TDAP 2020-06-17 00:00:00 Completed [facility] TDAP 2019-05-19 00:00:00 Completed [facility] TDAP 2019-05-19 00:00:00 Completed [facility] TDAP 2019-05-19 00:00:00 Completed [facility] TDAP 2019-05-19 00:00:00 Completed [facility] TDAP 2019-05-19 00:00:00 Completed [facility] TDAP 2019-05-19 00:00:00 Completed [facility] TDAP 2019-05-19 00:00:00 Completed [facility] TDAP 2019-05-19 00:00:00 Completed [facility] TDAP 2019-05-19 00:00:00 Completed [facility] TDAP 2019-05-19 00:00:00 Completed [facility] TDAP 2019-05-19 00:00:00 Completed [facility] TDAP 2019-05-19 00:00:00 Completed [facility] TDAP 2019-05-19 00:00:00 Completed [facility] HPV9 2017-03-06 00:00:00 Completed [facility] HPV9 2017-03-06 00:00:00 Completed [facility] HPV9 2017-03-06 00:00:00 Completed [facility] HPV9 2017-03-06 00:00:00 Completed [facility] HPV9 2017-03-06 00:00:00 Completed [facility] HPV9 2017-03-06 00:00:00 Completed [facility] HPV9 2017-03-06 00:00:00 Completed [facility] HPV9 2017-03-06 00:00:00 Completed [facility] HPV9 2017-03-06 00:00:00 Completed [facility] HPV9 2017-03-06 00:00:00 Completed [facility] HPV9 2017-03-06 00:00:00 Completed [facility] HPV9 2017-03-06 00:00:00 Completed [facility] HPV9 2017-03-06 00:00:00 Completed [facility] TDAP 2017-03-04 00:00:00 Completed [facility] TDAP 2017-03-04 00:00:00 Completed [facility] TDAP 2017-03-04 00:00:00 Completed [facility] TDAP 2017-03-04 00:00:00 Completed [facility] TDAP 2017-03-04 00:00:00 Completed [facility] TDAP 2017-03-04 00:00:00 Completed [facility] TDAP 2017-03-04 00:00:00 Completed [facility] TDAP 2017-03-04 00:00:00 Completed [facility] TDAP 2017-03-04 00:00:00 Completed [facility] TDAP 2017-03-04 00:00:00 Completed [facility] TDAP 2017-03-04 00:00:00 Completed [facility] TDAP 2017-03-04 00:00:00 Completed [facility] TDAP 2017-03-04 00:00:00 Completed [facility] HPV9 2016-05-14 00:00:00 Completed [facility] HPV9 2016-05-14 00:00:00 Completed [facility] HPV9 2016-05-14 00:00:00 Completed [facility] HPV9 2016-05-14 00:00:00 Completed [facility] HPV9 2016-05-14 00:00:00 Completed [facility] HPV9 2016-05-14 00:00:00 Completed [facility] HPV9 2016-05-14 00:00:00 Completed [facility] HPV9 2016-05-14 00:00:00 Completed [facility] HPV9 2016-05-14 00:00:00 Completed [facility] HPV9 2016-05-14 00:00:00 Completed [facility] HPV9 2016-05-14 00:00:00 Completed [facility] HPV9 2016-05-14 00:00:00 Completed [facility] HPV9 2016-05-14 00:00:00 Completed [facility] HPV9 2016-03-31 00:00:00 Completed [facility] HPV9 2016-03-31 00:00:00 Completed [facility] HPV9 2016-03-31 00:00:00 Completed [facility] HPV9 2016-03-31 00:00:00 Completed [facility] HPV9 2016-03-31 00:00:00 Completed [facility] HPV9 2016-03-31 00:00:00 Completed [facility] HPV9 2016-03-31 00:00:00 Completed [facility] HPV9 2016-03-31 00:00:00 Completed [facility] HPV9 2016-03-31 00:00:00 Completed [facility] HPV9 2016-03-31 00:00:00 Completed [facility] HPV9 2016-03-31 00:00:00 Completed [facility] HPV9 2016-03-31 00:00:00 Completed [facility] HPV9 2016-03-31 00:00:00 Completed [facility] TDAP 2016-02-13 00:00:00 Completed [facility] TDAP 2016-02-13 00:00:00 Completed [facility] TDAP 2016-02-13 00:00:00 Completed [facility] TDAP 2016-02-13 00:00:00 Completed [facility] TDAP 2016-02-13 00:00:00 Completed [facility] TDAP 2016-02-13 00:00:00 Completed [facility] TDAP 2016-02-13 00:00:00 Completed [facility] TDAP 2016-02-13 00:00:00 Completed [facility] TDAP 2016-02-13 00:00:00 Completed [facility] TDAP 2016-02-13 00:00:00 Completed [facility] TDAP 2016-02-13 00:00:00 Completed [facility] TDAP 2016-02-13 00:00:00 Completed [facility] TDAP 2016-02-13 00:00:00 Completed [facility] Rubella 2011-10-01 00:00:00 Completed [facility] Rubella 2011-10-01 00:00:00 Completed [facility] Rubella 2011-10-01 00:00:00 Completed [facility] Rubella 2011-10-01 00:00:00 Completed [facility] Rubella 2011-10-01 00:00:00 Completed [facility] Rubella 2011-10-01 00:00:00 Completed [facility] Rubella 2011-10-01 00:00:00 Completed [facility] Rubella 2011-10-01 00:00:00 Completed [facility] Rubella 2011-10-01 00:00:00 Completed [facility] Rubella 2011-10-01 00:00:00 Completed [facility] Rubella 2011-10-01 00:00:00 Completed [facility] Rubella 2011-10-01 00:00:00 Completed [facility] Rubella 2011-10-01 00:00:00 Completed [facility] Td 2007-02-11 00:00:00 Completed [facility] Td 2007-02-11 00:00:00 Completed [facility] Td 2007-02-11 00:00:00 Completed [facility] Td 2007-02-11 00:00:00 Completed [facility] Td 2007-02-11 00:00:00 Completed [facility] Td 2007-02-11 00:00:00 Completed [facility] Td 2007-02-11 00:00:00 Completed [facility] Td 2007-02-11 00:00:00 Completed [facility] Td 2007-02-11 00:00:00 Completed [facility] TD, NOS 2007-02-11 00:00:00 Completed [facility] TD, NOS 2007-02-11 00:00:00 Completed [facility] TD, NOS 2007-02-11 00:00:00 Completed [facility] TD, NOS 2007-02-11 00:00:00 Completed Vital Signs Vital Name Observation Time Observation Value Comments S ource Systolic blood pressure 2024-03-25 15:09:00 119 mm[Hg] [facility] Diastolic blood pressure 2024-03-25 15:09:00 78 mm[Hg] [facility] Heart rate 2024-03-25 15:09:00 75 /min Her[facility] Body temperature 2024-03-25 15:09:00 36.44 Stefanie [facility] Respiratory rate 2024-03-25 15:09:00 19 /min [facility] Body height 2024-03-25 15:09:00 175.3 cm [facility] Body weight 2024-03-25 15:09:00 77.293 kg [facility] BMI 2024-03-25 15:09:00 25.16 kg/m2 [facility] Systolic blood pressure 2024-03-18 20:00:00 122 mm[Hg] [facility] Diastolic blood pressure 2024-03-18 20:00:00 85 mm[Hg] [facility] Heart rate 2024-03-18 20:00:00 72 /min [facility] Body temperature 2024-03-18 20:00:00 36.94 Stefanie [facility] Respiratory rate 2024-03-18 20:00:00 16 /[facility] [facility] [place] Oxygen saturation in Arterial blood by Pulse oximetry 2024-03-18 20:00:00 100 /min [facility] Body height 2024-03-18 16:58:00 175.3 cm [facility] Body weight 2024-03-18 16:58:00 81.647 kg [facility] BMI 2024-03-18 16:58:00 26.58 kg/m2 [facility] Systolic blood pressure 2022-10-05 20:19:00 128 mm[Hg] [facility] Diastolic blood pressure 2022-10-05 20:19:00 81 mm[Hg] [facility] Heart rate 2022-10-05 20:19:00 80 /min [facility] Body temperature 2022-10-05 20:19:00 35.61 Stefanie [facility] Respiratory rate 2022-10-05 20:19:00 18 /min [facility] Body height 2022-10-05 20:19:00 175.3 cm [facility] Body weight 2022-10-05 20:19:00 83.915 kg [facility] BMI 2022-10-05 20:19:00 27.32 kg/m2 [facility] Systolic blood pressure 2022-07-05 13:16:00 128 mm[Hg] [facility] Diastolic blood pressure 2022-07-05 13:16:00 78 mm[Hg] [facility] Heart rate 2022-07-05 13:16:00 75 /min [facility] Body temperature 2022-07-05 13:16:00 36.06 Stefanie [facility] Respiratory rate 2022-07-05 13:16:00 16 /min [facility] Body height 2022-07-05 13:16:00 175.3 cm [facility] Body weight 2022-07-05 13:16:00 82.691 kg [facility] BMI 2022-07-05 13:16:00 26.92 kg/m2 [facility] Systolic blood pressure 2022-04-10 16:24:00 138 mm[Hg] [facility] Diastolic blood pressure 2022-04-10 16:24:00 88 mm[Hg] [facility] Heart rate 2022-04-10 16:24:00 74 /min [facility] Body temperature 2022-04-10 16:24:00 36.5 Stefanie [facility] Respiratory rate 2022-04-10 16:24:00 20 /min [facility] Body weight 2022-04-10 16:24:00 80.74 kg [facility] BMI 2022-04-10 16:24:00 26.29 kg/m2 [facility] Systolic blood pressure 2022-01-09 19:55:00 132 mm[Hg] [facility] Diastolic blood pressure 2022-01-09 19:55:00 88 mm[Hg] [facility] Heart rate 2022-01-09 19:55:00 86 /min [facility] Body temperature 2022-01-09 19:17:00 36.33 Stefanie [facility] Respiratory rate 2022-01-09 19:17:00 18 /min [facility] Body height 2022-01-09 19:17:00 175.3 cm [facility] Body weight 2022-01-09 19:17:00 79.635 kg [facility] BMI 2022-01-09 19:17:00 25.93 kg/m2 [facility] Systolic blood pressure 2021-10-17 14:26:00 132 mm[Hg] [facility] Diastolic blood pressure 2021-10-17 14:26:00 85 mm[Hg] [facility] Heart rate 2021-10-17 14:26:00 77 /min [facility] Body temperature 2021-10-17 14:26:00 36.67 Stefanie [facility] Respiratory rate 2021-10-17 14:26:00 20 /min [facility] Body height 2021-10-17 14:26:00 175.3 cm [facility] Body weight 2021-10-17 14:26:00 81.829 kg [facility] BMI 2021-10-17 14:26:00 26.64 kg/m2 [facility] Systolic blood pressure 2021-07-24 14:51:00 116 mm[Hg] [facility] Diastolic blood pressure 2021-07-24 14:51:00 74 mm[Hg] [facility] Heart rate 2021-07-24 14:51:00 74 /min [facility] Body temperature 2021-07-24 14:51:00 36.56 Stefanie [facility] Respiratory rate 2021-07-24 14:51:00 20 /min [facility] Body height 2021-07-24 14:51:00 175.3 cm [facility] Body weight 2021-07-24 14:51:00 80.967 kg [facility] BMI 2021-07-24 14:51:00 26.36 kg/m2 [facility] Systolic blood pressure 2021-05-01 14:53:00 128 mm[Hg] [facility] Diastolic blood pressure 2021-05-01 14:53:00 87 mm[Hg] [facility] Heart rate 2021-05-01 14:53:00 88 /min [facility] Body temperature 2021-05-01 14:53:00 35.89 Stefanie [facility] Respiratory rate 2021-05-01 14:53:00 16 /min [facility] Body height 2021-05-01 14:53:00 175.3 cm [facility] Body weight 2021-05-01 14:53:00 81.058 kg [facility] BMI 2021-05-01 14:53:00 26.39 kg/m2 [facility] Systolic blood pressure 2021-02-07 16:32:00 128 mm[Hg] [facility] Diastolic blood pressure 2021-02-07 16:32:00 78 mm[Hg] [facility] Heart rate 2021-02-07 16:32:00 75 /min [facility] Body temperature 2021-02-07 16:32:00 36.89 Stefanie [facility] Respiratory rate 2021-02-07 16:32:00 16 /min [facility] Body height 2021-02-07 16:32:00 175.3 cm [facility] Body weight 2021-02-07 16:32:00 79.561 kg [facility] BMI 2021-02-07 16:32:00 25.90 kg/m2 [facility] Systolic blood pressure 2020-11-15 15:40:00 116 mm[Hg] [facility] Diastolic blood pressure 2020-11-15 15:40:00 77 mm[Hg] [facility] Heart rate 2020-11-15 15:40:00 79 /min [facility] Body temperature 2020-11-15 15:40:00 36.5 Stefanie [facility] [place] Respiratory rate 2020-11-15 15:40:00 18 /min [facility] Body height 2020-11-15 15:40:00 175.3 cm [facility] Body weight 2020-11-15 15:40:00 77.384 kg [facility] BMI 2020-11-15 15:40:00 25.19 kg/m2 [facility] Procedures Procedure Date / Time Performed Performing Clinician Source POCT TEST 2024-03-25 00:00:00 Gustabo Pizano [facility] [place] POCT URINALYSIS W/O SPECIFIC GRAVITY 2024-03-25 00:00:00 Danyell Pizano [facility] FIRST TRIMESTER LESS THAN 14 WEEKS 2024-03-18 19:09:01 Gus Stewart [facility] COMP. METABOLIC PANEL (21830) 2024-03-18 17:47:00 Gus Stewart [facility] TOTAL BETA HCG ASSAY 2024-03-18 17:47:00 Radha Stewart [facility] CBC WITH DIFF 2024-03-18 17:47:00 Gus Stewart [facility] URINALYSIS 2024-03-18 17:47:00 Gus Stewart [facility] POCT TEST 2024-03-18 17:46:00 Gus Stewart [facility] POCT TEST 2022-10-05 20:25:[address] [facility] [place] CONSENT/REFUSAL FOR DIAGNOSIS AND TREATMENT 2022-01-09 20:45:01 Doctor Unassigned, [place] [facility] CBC WITH DIFF 2022-01-09 20:43:[address] [facility] GLYCOSYLATED HEMOGLOBIN (A1C) 2022-01-09 20:43:[address] [facility] HIV 1/2 AG-AB WITH REFLEX 2022-01-09 20:43:[address] [facility] GALV ONLY - SYPHILIS IGG/IGM 2022-01-09 20:43:[address] [facility] Encounters Start Date/Time End Date/Time Encounter Type Admission Type Attending Clinicians Care Facility Care Department Encounter ID Source 2020-12-09 08:02:39 Emergency [facility] [id number] [facility] 2020-12-08 21:55:33 Outpatient [facility] [id number] [facility] 2024-04-14 07:00:00 2024-04-14 07:00:00 Outpatient R DANYELL PIZANO [facility] [id number] [facility] 2024-04-01 00:00:00 2024-04-02 10:05:40 Telephone Danyell Pizano [facility] ELECTRIC ORGAN INSPECTOR AND REPAIRER [facility] 1.2840.114 350.1.13.10 4.2.7.2.686 [id number] 107 [id number] [facility] 2024-03-31 09:15:00 2024-03-31 09:15:00 Medical Center Representative Visit Lab, Ang-RmchDanyell Donaldson Lab, Ang-Rmcandelario [facility] ELECTRIC ORGAN INSPECTOR AND REPAIRER [facility] 1.84.114 350.1.13.10 4.2.7.2.686 [id number] 107 [id number] [facility] 2024-03-31 09:15:00 2024-03-31 08:47:19 Outpatient R DANYELL PIZANO [facility] [id number] [facility] 2024-03-31 07:45:00 2024-03-31 07:45:00 Outpatient R [facility] [id number] [facility] 2024-03-27 00:00:00 2024-03-27 15:31:13 Telephone Danyell Pizano [facility] ELECTRIC ORGAN INSPECTOR AND REPAIRER [facility] 1.840.114 350.1.13.10 4.2.7.2.686 [id number] 107 [id number] [facility] 2024-03-27 13:45:00 2024-03-27 13:45:00 Outpatient R DANYELL PIZANO [facility] [id number] [facility] 2024-03-26 00:00:00 2024-03-26 15:45:05 Telephone Danyell Pizano [facility] ELECTRIC ORGAN INSPECTOR AND REPAIRER [facility] 1.840.114 350.1.13.10 4.2.7.2.686 [id number] [facility] 2024-03-25 08:15:00 2024-03-25 10:03:19 Initial Visit Danyell Pizano [facility] ELECTRIC ORGAN INSPECTOR AND REPAIRER [facility] 1.2.840.114 350.1.13.10 4.2.7.2.686 [id number] [facility] 2024-03-25 07:45:00 2024-03-25 09:18:56 Outpatient DANYELL DUFF [facility] [id number] [facility] 2024-03-24 00:00:00 2024-03-24 16:32:03 Telephone Danyell Pizano [facility] ELECTRIC ORGAN INSPECTOR AND REPAIRER [facility] 1.2.840.114 350.1.13.10 4.2.7.2.686 [id number] [facility] 2024-03-24 00:00:00 2024-03-24 13:44:25 Telephone Felisha Wise [facility] 1.2.840.114 350.1.13.10 4.2.7.2.686 [id number] [facility] 2024-03-18 11:00:00 2024-03-18 14:26:00 Emergency GUS MANUEL TIMOTHY INDHIRAJ ERT [id number] [facility] 2024-03-18 11:00:00 2024-03-18 14:26:00 Emergency Gus Stewart [facility] 1.2.840.114 350.1.13.10 4.2.7.2.686 [id number] [facility] 2023-01-01 14:30:00 2023-01-01 14:30:00 Outpatient ALONDRA JONAS [facility] [id number] [facility] 2022-10-05 13:45:00 2022-10-05 15:52:[address] [facility] [id number] [facility] 2022-10-05 13:45:00 2022-10-05 15:52:35 Nurse Visit Visit, Alondra Schuler [facility] ELECTRIC ORGAN INSPECTOR AND REPAIRER [facility] 1.2.840.114 350.1.13.10 4.2.7.2.686 [id number] 107 [id number] [facility] 2022-09-27 08:30:00 2022-09-27 08:30:00 Outpatient R [facility] [id number] [facility] 2022-07-05 08:00:00 2022-07-05 08:23:44 Nurse Visit Visit, Alondra Schuler [facility] ELECTRIC ORGAN INSPECTOR AND REPAIRER [facility] 1..840.114 350.1.13.10 4.2.7.2.686 [id number] [facility] 2022-07-05 08:00:00 2022-07-05 08:00:[address] [facility] [id number] [facility] 2022-07-03 10:00:00 2022-07-03 10:00:00 Outpatient R [facility] [id number] [facility] 2022-04-10 10:00:00 2022-04-10 10:30:07 [facility] ELECTRIC ORGAN [facility]PECT[facility] 1..840.114 350.1.13.10 4.2.7.2.686 [id number] 107 [id number] [facility] 2022-04-10 10:00:00 2022-04-10 10:00:00 Outpatient R DANYELL PIZANO [facility] [id number] [facility] 2022-04-04 08:00:00 2022-04-04 08:00:00 Outpatient R DANYELL PIZANO [facility] [id number] [facility] 2022-01-09 09:00:00 2022-01-09 14:43:05 Outpatient ALONDRA JONAS [facility] [id number] [facility] 2022-01-09 09:00:00 2022-01-09 14:43:05 Office [facility] Brenda A [facility] ELECTRIC ORGAN INSPECTOR AND REPAIRER [facility] 1.840.114 350.1.13.10 4.2.7.2.686 [id number] [facility] 2022-01-09 00:00:00 2022-01-09 00:00:00 Orders Only Doctor Unassigned, [place] [facility] 1.840.114 350.1.13.10 4.2.7.2.686 [id number] [facility] 2022-01-09 00:00:00 2022-01-09 00:00:00 Letter (Out) Danyell Pizano [facility] 1.2.840.114 350.1.13.10 4.2.7.2.686 [id number] [facility] 2021-10-17 09:30:00 2021-10-17 09:32:05 [facility] ELECTRIC ORGAN INSPECTOR AND REPAIRER [facility] 1.840.114 350.1.13.10 4.2.7.2.686 [id number] 107 [id number] [facility] 2021-10-17 09:30:00 2021-10-17 09:30:00 Outpatient CHERIE LIN [facility] [id number] [facility] 2021-07-24 09:30:00 2021-07-24 09:58:54 [facility] ELECTRIC ORGAN INSPECTOR AND REPAIRER [facility] ..840.114 350.1.13.10 4.2.7.2.686 [id number] 107 [id number] [facility] 2021-07-24 09:30:00 2021-07-24 09:30:00 Outpatient CHERIE LIN [facility] [id number] [facility] 2021-05-02 09:00:00 2021-05-02 09:00:00 Outpatient CHERIE LIN [facility] [id number] [facility] 2021-05-01 13:00:00 2021-05-01 13:00:00 [facility] ELECTRIC ORGAN INSPECTOR AND REPAIRER [facility] ..840.114 350.1.13.10 4.2.7.2.686 [id number] 107 [id number] [facility] 2021-05-01 13:00:00 2021-05-01 10:04:19 Outpatient CHERIE LIN [facility] [id number] [facility] 2021-05-01 00:00:00 2021-05-01 00:00:00 Letter (Out) Cherie Chang [facility] ELECTRIC ORGAN [facility] .2.840.114 350.1.13.10 4.2.7.2.686 [id number] [facility] 2021-02-07 10:00:00 2021-02-07 10:01:24 Outpatient CHERIE LIN [facility] [id number] [facility] 2021-02-07 10:00:00 2021-02-07 10:01:24 [facility] ELECTRIC ORGAN INSPECTOR AND REPAIRER [facility] 1.20.114 350.1.13.10 4.2.7.2.686 [id number] [facility] 2020-11-15 10:21:35 2020-11-15 11:00:35 Office Visit Eileen Ortiz [facility] ELECTRIC ORGAN INSPECTOR AND REPAIRER [facility] 1.0.114 350.1.13.10 4.2.7.2.686 [id number] [facility] 2020-11-15 10:00:00 2020-11-15 10:00:00 Outpatient R EILEEN ORTIZ [facility] [id number] [facility] 2020-11-15 00:00:00 2020-11-15 00:00:00 Orders Only Doctor Unassigned, [place] [facility] 1..114 350.1.13.10 4.2.7.2.686 [id number] [facility] 2020-09-06 15:15:00 2020-09-06 15:15:00 Outpatient R AKINSIJAZ, DANYELL [facility] [id number] [facility] 2020-08-30 10:30:00 2020-08-30 10:30:00 Outpatient R AKINSIDANYELL SEBASTIAN [facility] [id number] [facility] 2020-08-23 15:30:00 2020-08-23 15:30:00 Outpatient R [facility] [id number] [facility] 2020-08-08 09:30:00 2020-08-08 09:30:00 Outpatient R [facility] [id number] [facility] 2020-06-17 00:00:00 2020-06-17 00:00:00 Patient Secure Msg Doctor Unassigned, [place] [facility] 1.2.114 350.1.13.10 4.2.7.2.686 [id number] [facility] 2020-05-16 09:00:00 2020-05-16 09:00:00 Outpatient R [facility] [id number] [facility] 2020-02-19 09:00:00 2020-02-19 09:00:00 Outpatient R CHERIE CHANG [facility] [id number] [facility] 2020-02-18 08:30:00 2020-02-18 08:30:00 Outpatient R [facility] [id number] [facility] 2019-11-26 13:00:00 2019-11-26 13:00:00 Outpatient R CHERIE CHANG [facility] [id number] [facility] 2019-11-25 08:30:00 2019-11-25 08:30:00 Outpatient R [facility] [id number] [facility] 2019-10-12 09:45:00 2019-10-12 09:45:00 Outpatient R AKINSIPE, DANYELL [facility] [id number] [facility] 2019-09-16 09:45:00 2019-09-16 09:45:00 Outpatient R AKINSIPE, DANYELL [facility] [id number] [facility] 2019-09-02 08:30:00 2019-09-02 08:30:00 Outpatient R AKINSIPE, DANYELL [facility] [id number] [facility] 2019-08-31 15:45:00 2019-08-31 15:45:00 Outpatient R AKINSIPE, DANYELL [facility] [id number] [facility] 2019-08-31 15:15:00 2019-08-31 15:15:00 Outpatient R AKINSIPE, DANYELL [facility] [id number] [facility] 2019-08-26 14:30:00 2019-08-26 14:30:00 Outpatient R AKINSIPE, DANYELL [facility] [id number] [facility] 2019-07-30 13:30:00 2019-07-30 13:30:00 Outpatient R [facility] [id number] [facility] 2019-07-29 15:15:00 2019-07-29 15:15:00 Outpatient R ETTAYAA [facility] [id number] [facility] 2019-07-09 10:00:00 2019-07-09 10:00:00 Outpatient P [facility] [id number] [facility] 2019-07-03 10:45:00 2019-07-03 10:45:00 Outpatient R DANYELL PIZANO [facility] [id number] [facility] 2019-07-02 10:15:00 2019-07-02 10:15:00 Outpatient P [facility] [id number] [facility] 2019-06-25 15:15:00 2019-06-25 15:15:00 Outpatient P [facility] [id number] [facility] 2019-06-25 15:15:00 2019-06-25 15:15:00 Outpatient P [facility] [id number] [facility] 2019-06-18 14:00:00 2019-06-18 14:00:00 Outpatient P [facility] [id number] [facility] 2019-06-15 08:00:00 2019-06-15 08:00:00 Outpatient R DANYELL PIZANO [facility] [id number] [facility] 2019-06-08 10:00:00 2019-06-08 10:00:00 Outpatient P [facility] [id number] [facility] 2019-06-05 13:30:00 2019-06-05 13:30:00 Outpatient R CHERIE CHANG [facility] [id number] [facility] 2019-06-02 10:15:00 2019-06-02 10:15:00 Outpatient R [facility] [id number] [facility] 2019-06-01 09:30:00 2019-06-01 09:30:00 Outpatient R AKINDANYELL RODRIGUEZ [facility] [id number] [facility] 2019-05-26 11:00:00 2019-05-26 11:00:00 Outpatient P [facility] [id number] [facility] 2019-05-19 09:00:00 2019-05-19 09:00:00 Outpatient R DANYELL PIZANO [facility] [id number] [facility] 2019-05-18 10:15:00 2019-05-18 10:15:00 Outpatient R DANYELL PIZANO [facility] [id number] [facility] 2019-05-18 07:45:00 2019-05-18 07:45:00 Outpatient R DANYELL PIZANO [facility] [id number] [facility] 2019-05-04 08:00:00 2019-05-04 08:00:00 Outpatient R DANYELL PIZANO [facility] [id number] [facility] Results Test Description Test Time Test Comments Results Result Co [facility]o Specific [id number] 14:59:00* Test Item Value Reference Range Interpretation Comme nts POCT PH U (test code = 3254) 6 mg/dl 5-8 POCT U LEUK EST (test code = 3263) neg Negative - Negative POCT U NIT (test code = 3262) neg Negative - Negati ve POCT U PROT (test code = 3259) trace Negative - Negat nick POCT U GLU (test code = 3256) normal Negative - Negati ve POCT U KETONE (test code = 3258) neg Negative - Neg ative POCT U BLD (test code = 3257) neg Negative - Negati ve [facility] less than 14 [id number] 19:21:06HISTORY: ?Pain/bleeding. TECHNIQUE: Both transabdominal and transvaginal pelvic ultrasound studieswere completed by the technologist. FINDINGS: Uterus is of normal size and shape, measures approximately 8.5 x5.6 x 6.8 cm in size and contains a single intrauterine ofapproximately 5 weeks size. 4 to 5 mm sized irregular shaped gestationalsac is visualized without a yolk sac. Adjacent to the gestational sac,small 18 x 5 mm subchorionic hemorrhage is visualized. No free fluid in yldjet-al-pbr. Right ovary is not visualized. Left ovary is 2.4 x 2.4 x 1.5 cm ( 4.42 ml). CONCLUSIONS: 5 week size deformed gestational sac noted with smallsubchorionic hemorrhage around, consistent with failed /[facility] [id number] 19:03:57* Test Item Value Reference Range Interpretation Comme nts BETA HCG (test code = 4616809046) 871.03 See_Comment [Automated Casentrica ge] The system which generated this result transmitted reference range: Non- female and male patients: <5 mIU/mL. The reference range was not used to interpret this result as normal/abnormal. NICHOLAS (test code = NICHOLAS) Gestational Age ?Range (mIU/mL) 1-10 ?Weeks ?[id number] Weeks ?[id number] Weeks ?3466-07114020-41 Weeks ?[id number] Biotin has been reported to cause a negative bias, interpret results relative to patient's use of biotin. [facility]. METABOLIC PANEL ([id number])2024-03-18 18:34:49* Test Item Value Reference Range Interpretation Comme nts NA (test code = 4845251553) 135 mmol/L 135-145 K (test code = 1206365233) 3.7 mmol/L 3.5-5.0 CL (test code = 0865977445) 107 mmol/L 98-108 CO2 TOTAL (test code = 1039439936) 23 mmol/L 23-31 AGAP (test code = 5434714978) 5 2-16 BUN (test code = 5889651212) 9 mg/dL 7-23 GLUCOSE (test code = 0619231538) 104 mg/dL 70-110 CREATININE (test code = 2160-0) 0.70 mg/dL 0.50-1.04 TOTAL BILI (test code = 9069091016) 0.3 mg/dL 0.1-1.1 CALCIUM (test code = 3835753089) 9.4 mg/dL 8.6-10.6 T PROTEIN (test code = 0620734723) 7.6 g/dL 6.3-8.2 ALBUMIN (test code = 0238230541) 4.3 g/dL 3.5-5.0 ALK PHOS (test code = 5122928782) 49 U/L 34-122 ALTv (test code = 1742-6) 14 U/L 5-35 AST(SGOT) (test code = 2244280218) 28 U/L 13-40 eGFR (test code = 51404-3) 118.7 mL/min/1.73m2 CKD-EPI eGFR (20 21). Assuming creatinine has been stable day-to-day for at least three months, the eGFR indicates Category G1 (>= 90 mL/min/1.73 m2) [facility] WITH [id number] 18:16:10* Test Item Value Reference Range Interpretation Comme nts WBC (test code = 6690-2) 5.99 4.30-11.10 RBC (test code = 789-8) 4.27 3.93-5.25 HGB (test code = 718-7) 10.5 g/dL 11.6-15.0 L HCT (test code = 4544-3) 33.7 % 35.7-45.2 L MCV (test code = 787-2) 78.9 fL 80.6-95.5 L MCH (test code = 785-6) 24.6 pg 25.9-32.8 L MCHC (test code = 786-4) 31.2 g/dL 31.6-35.1 L RDW-SD (test code = 32621-7) 42.2 fL 39.0-49.9 RDW-CV (test code = 788-0) 14.7 % 12.0-15.5 PLT (test code = 777-3) 292 166-358 MPV (test code = 05129-1) 8.8 fL 9.5-12.9 L NRBC/100 WBC (test code = 7826691902) 0.0 0.0-10.0 NRBC x10^3 (test code = 6225862284) See_Comment [Automated messa ge] The system which generated this result transmitted reference range: 10*3/?L. The reference range was not used to interpret this result as normal/abnormal. GRAN MAT (NEUT) % (test code = 770-8) 59.5 % IMM GRAN % (test code = 8798663552) 0.20 % LYMPH % (test code = 736-9) 29.4 % MONO % (test code = 5905-5) 7.8 % EOS % (test code = 713-8) 2.8 % BASO % (test code = 706-2) 0.3 % GRAN MAT x10^3(ANC) (test code = 3751260684) 3.56 10*3/uL 1.88-7.09 IMM GRAN x10^3 (test code = 9601818415) 0.00-0.06 LYMPH x10^3 (test code = 731-0) 1.76 10*3/uL 1.32-3.29 MONO x10^3 (test code = 742-7) 0.47 10*3/uL 0.33-0.92 EOS x10^3 (test code = 711-2) 0.17 10*3/uL 0.03-0.39 BASO x10^3 (test code = 704-7) 0.01-0.07 Lab Interpretation (test code = 15010-6) Abnormal [facility] [id number] 17:46:00* Test Item Value Reference Range Interpretation Comme nts POCT PREG (test code = 1605) Positive On board controls acceptable with C Line (test code = 3574) Yes POCT PREG LOT # (test code = 3575) [id number] POCT PREG TEST DATE ( test code = 3576) [id number] Lab Interpretation (test cod e = 16944-1) Normal [facility] [id number] 20:25:00* Test Item Value Reference Range Interpretation Comme nts POCT PREG (test code = 1605) Negative On board controls acceptable with C Line (test code = 3574) Yes POCT PREG LOT # (test code = 3575) POCT PREG TEST DATE ( test code = 3576) [facility] [id number] 20:25:00* Test Item Value Reference Range Interpretation Comme nts POCT PREG (test code = 1605) Negative On board controls acceptable with C Line (test code = 3574) Yes POCT PREG LOT # (test code = 3575) POCT PREG TEST DATE ( test code = 3576) [facility] Notes Date/Time Note Provider Source 2024-04-02 10:03:08 Pt returned phone call. Informed pt beta levels have trended down and to keep family planning visit appt. Pt verbalized understanding. Bonita Frost LVN 04/02/2024 10:05 AM ARCH INSTRUCTOR Bonita Frost LVN [facility] 2024-04-02 08:40:11 2nd attempt to call patient, no answer, left vm. [facility] 2024-04-01 12:27:40 Called pt, no answer. Sent vm. Bonita Frost LVN 04/01/2024 12:28 PM [facility] 2024-04-01 11:56:42 Please notify the patient her beta levels have trended down, please have her keep her appt for family planning ROBERTH Crook 04/01/2024 11:57 AM [facility] 2024-03-27 15:23:32 Patient stated she has been having cramping about an 8-9/10 and not getting full relief with Tylenol or Ibuprofen. Stated she last took Tylenol today a couple of minutes ago and is spotting today but denies any heavy bleeding. Advised pt to be seen in ER if pain is severe and not being relieved by OTC pain meds. Informed patient antibiotics are not prescribed to prevent infection but educated on s/s of infection and advised to keep beta lab appt on 03/31, ER warnings given, verbalized understanding. [facility] 2024-03-27 14:27:17 I'm not sure what type of infection she wants to be treated for. Lea will need to answer this on Saturday. [facility] 2024-03-27 13:47:20 Pt requesting call back states she is cramping and discussed miscarriage with provider at last visit and requesting rx to prevenyt infection. Please call [phone] ARCH INSTRUCTOR Lorin Hayes [facility] 2024-03-26 15:44:24 Called pt and notified of beta levels trending down and need to keep upcoming appts. Verbalized understanding. Bonita Frost LVN 03/26/2024 3:44 PM [facility] Bonita Frost LVN [facility] 2024-03-26 15:13:16 Called pt, no answer. Left vm. Bonita Frost LVN 03/26/2024 3:13 PM [facility] 2024-03-26 14:34:53 Please notify the patient her beta is trending down Component Ref Range & Units 1 d ago 8 d ago 5 yr ago BETA HCG Non- female and male patients: <5 mIU/mL 31.17 871.03 Have her keep her appt for repeat beta and family planning visit ROBERTH Crook 03/26/2024 2:35 PM ARCH INSTRUCTOR [facility] 2024-03-24 16:31:35 Called pt, she has appt for 03/25 at 0730. No questions at this time. . Bonita Frost LVN 03/24/2024 4:31 PM ARCH INSTRUCTOR Bonita Frost LVN [facility] 2024-03-24 16:16:15 She needs NOB so we can get her into beta clinic. ARCH INSTRUCTOR [facility] 2024-03-24 13:44:01 Pt declined to schedule beta at this time, states she will call back. ARCH INSTRUCTOR Zaira Singh [facility] 2024-03-24 13:17:18 Terrance Song is a 29 year old female calling to went to ER found out and have cramping and bleeding. Please contact patient at [phone] ARCH INSTRUCTOR Delma Gomez [facility] 2024-03-24 12:10:57 Terrance Song is a 29 year old female Pt is calling requesting to schedule a Beta appt but has questions regarding Ian insurance primary and medicaid secondary. Please contact patient at [phone]. ARCH INSTRUCTOR Lynnette Carbone [facility] 2024-03-18 14:23:48 Pt discharged with diagnosis of acute abdominal pain, and incomplete . Printed and verbal instructions reviewed with and given to pt. Prescriptions given x 0. pt verbalized understanding of teaching and recommended follow-up. Denies questions or concerns at this time. Pt ambulatory at discharge. Appears in no apparent distress. No ataxia noted. ARCH INSTRUCTOR Loreto Guzman RN [facility] 2024-03-18 12:02:32 Lab notified of add-on beta HCG ARCH INSTRUCTOR Drea Estrada RN [facility] 2024-03-18 10:57:53 Pt to ED CO lower abd pain and spotting x 2 days. Denies vomiting. Denies dysuria. No hx of abdominal surgeries. Ibuprofen at 0900. LBM yesterday- reported normal. LMP- pt unsure bc menses is irregular. 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 She relates it to be in her lower abdomen. It is moderate in intensity. The pain is been present for approximately 2 days. There is some vaginal spotting also. The patient relates that her periods are irregular and she is uncertain when her last normal menstrual period was. History provided by: Patient Past Medical History/Immunizations: Past Medical History: Diagnosis Date Anemia with previous Severe pre-eclampsia, with delivery 03/31/2016 resolved, with STD (sexually transmitted disease) chlamydia, treated Tetanus received in last 5 years: No Childhood immunizations: Up-to-date Allergies: No Known Allergies Past Social History: Tobacco Use Never smoked or used smokeless tobacco. Alcohol Use Yes; 0.0 standard drinks of alcohol per week; 0 Standard drinks or equivalent. Comments: occasionally Drug Use No. Sexual Activity Sexually active; Partners: Male; Control/Protection: Injection. Comments: last intercourse 12/12/2021 Past Surgical History: History reviewed. No pertinent surgical history. Review of Systems: Review of Systems Constitutional: Negative for activity change, appetite change and fever. HENT: Negative for congestion and mouth sores. Respiratory: Negative for chest tightness. Cardiovascular: Negative for chest pain, palpitations and leg swelling. Gastrointestinal: Positive for abdominal pain and nausea. Negative for vomiting. Genitourinary: Positive for vaginal bleeding. Negative for urgency, hematuria, flank pain, vaginal discharge, difficulty urinating and vaginal pain. Musculoskeletal: Negative for neck pain and neck stiffness. Neurological: Negative for dizziness and weakness. Physical Exam: ED Triage Vitals [03/18/24 1058] Weight 81.6 kg (180 lb) Actual or estimated Estimated by patient/family report Height 1.753 m (5' 9") BP (!) 133/92 Pulse 82 Resp 18 Temp 36.9 ?C (98.4 ?F) Temp source Oral SpO2 100 % Measured on Room air Physical Exam Vitals reviewed. Constitutional: Appearance: Normal appearance. HENT: Head: Normocephalic and atraumatic. Right Ear: Tympanic membrane and external ear normal. Left Ear: Tympanic membrane and external ear normal. Mouth/Throat: Mouth: Mucous membranes are moist. Pharynx: Oropharynx is clear. No posterior oropharyngeal erythema. Eyes: General: No scleral icterus. Extraocular Movements: Extraocular movements intact. Conjunctiva/sclera: Conjunctivae normal. Pupils: Pupils are equal, round, and reactive to light. Cardiovascular: Rate and Rhythm: Normal rate and regular rhythm. Pulses: Normal pulses. Heart sounds: No murmur heard. No friction rub. Pulmonary: Effort: Pulmonary effort is normal. Breath sounds: Normal breath sounds. No rhonchi or rales. Abdominal: General: Bowel sounds are normal. Palpations: Abdomen is soft. There is no mass. Tenderness: There is abdominal tenderness in the suprapubic area. There is no right CVA tenderness, left CVA tenderness, guarding or rebound. Musculoskeletal: General: No swelling, tenderness or signs of injury. Cervical back: Neck supple. No tenderness. Right lower leg: No edema. Left lower leg: No edema. Lymphadenopathy: Cervical: No cervical adenopathy. Skin: General: Skin is warm and dry. Findings: No rash. Neurological: General: No focal deficit present. Mental Status: She is alert and oriented to person, place, and time. Cranial Nerves: No cranial nerve deficit. Motor: No weakness. Psychiatric: Mood and Affect: Mood normal. Behavior: Behavior normal. Thought Content: Thought content normal. Judgment: Judgment normal. Radiology: US first trimester less than 14 weeks Final Result HISTORY: Pain/bleeding. TECHNIQUE: Both transabdominal and transvaginal pelvic ultrasound studies were completed by the technologist. FINDINGS: Uterus is of normal size and shape, measures approximately 8.5 x 5.6 x 6.8 cm in size and contains a single intrauterine of approximately 5 weeks size. 4 to 5 mm sized irregular shaped gestational sac is visualized without a yolk sac. Adjacent to the gestational sac, small 18 x 5 mm subchorionic hemorrhage is visualized. No free fluid in the cul-de-sac. Right ovary is not visualized. Left ovary is 2.4 x 2.4 x 1.5 cm ( 4.42 ml). CONCLUSIONS: 5 week size deformed gestational sac noted with small subchorionic hemorrhage around, consistent with failed /incomplete . Lab Results: Lab Results CBC WITH DIFF - Abnormal Result Value Ref Range WBC 5.99 4.30 - 11.10 10*3/?L RBC 4.27 3.93 - 5.25 10*6/?L HGB 10.5 (*) 11.6 - 15.0 g/dL HCT 33.7 (*) 35.7 - 45.2 % MCV 78.9 (*) 80.6 - 95.5 fL MCH 24.6 (*) 25.9 - 32.8 pg MCHC 31.2 (*) 31.6 - 35.1 g/dL RDW-SD 42.2 39.0 - 49.9 fL RDW-CV 14.7 12.0 - 15.5 % PLT 292 166 - 358 10*3/?L MPV 8.8 (*) 9.5 - 12.9 fL NRBC/100 WBC 0.0 0.0 - 10.0 /100 WBCs NRBC x10 3 <0.01 10*3/?L GRAN MAT (NEUT) % 59.5 % IMM GRAN % 0.20 % LYMPH % 29.4 % MONO % 7.8 % EOS % 2.8 % BASO % 0.3 % GRAN MAT x10 3 (ANC) 3.56 1.88 - 7.09 10*3/uL IMM GRAN x10 3 <0.03 0.00 - 0.06 10*3/uL LYMPH x10 3 1.76 1.32 - 3.29 10*3/uL MONO x10 3 0.47 0.33 - 0.92 10*3/uL EOS x10 3 0.17 0.03 - 0.39 10*3/uL BASO x10 3 <0.03 0.01 - 0.07 10*3/uL URINALYSIS - Abnormal APPEARANCE Clear Clear COLOR Yellow Yellow PH 5.0 4.8 - 8.0 SP GRAVITY 1.029 1.003 - 1.030 GLU U QUAL Normal Normal BLOOD 3+ (*) Negative KETONES Negative Negative PROTEIN 30 mg/dL (*) Negative UROBILIN 2.0 mg/dL (*) Normal BILIRUBIN Negative Negative NITRITE Negative Negative LEUK JASBIR 75/uL (*) Negative RBC/HPF 18 (*) 0 - 3 HPF WBC/HPF 3 0 - 5 HPF BACTERIA Negative Negative MUCOUS Moderate (*) Negative LPF SQ EPITH 4 HPF POCT TEST - Normal POCT PREG Positive On board controls acceptable with C Line Yes POCT PREG LOT # [id number] POCT PREG TEST DATE 12,162,025 COMP. METABOLIC PANEL (76799) NA 135 135 - 145 mmol/L K 3.7 3.5 - 5.0 mmol/L CL 107 98 - 108 mmol/L CO2 TOTAL 23 23 - 31 mmol/L AGAP 5 2 - 16 BUN 9 7 - 23 mg/dL GLUCOSE 104 70 - 110 mg/dL CREATININE 0.70 0.50 - 1.04 mg/dL TOTAL BILI 0.3 0.1 - 1.1 mg/dL CALCIUM 9.4 8.6 - 10.6 mg/dL T PROTEIN 7.6 6.3 - 8.2 g/dL ALBUMIN 4.3 3.5 - 5.0 g/dL ALK PHOS 49 34 - 122 U/L ALTv 14 5 - 35 U/L AST(SGOT) 28 13 - 40 U/L eGFR 118.7 mL/min/1.73m2 TOTAL BETA HCG ASSAY BETA HCG 871.03 Non- female and male patients: <5 mIU/mL EKG: If EKG completed, see Procedure Note. Orders and Treatments: Orders Placed This Encounter Procedures US first trimester less than 14 weeks CBC WITH DIFF URINALYSIS POCT TEST COMP. 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) Orders Placed This Encounter Medications acetaminophen (TYLENOL) tablet 650 mg First Provider Eval: ED Events Date/Time Event User Comments 03/18/24 1106 Medical Screening Begins GUS STEWART DO -- 03/18/24 1106 First Provider Evaluation GSU STEWART DO -- ED COURSE Diagnosis/Impression as of 03/18/24 1407 Acute abdominal pain Incomplete Procedures: Procedures MDM: Medical Decision Making Patient was evaluated for the complaint of Abdominal Pain Diagnoses considered but not limited to: (complete/inevitable/impending ) "Blighted Ovum" Ectopic Demise Intrauterine Ovarian Cyst Pyelonephritis Renal Colic. Labs:were ordered, and resulted, any relevant abnormalities were considered. Imaging:Ordered, and resulted, any relevant abnormalities were considered. Procedures:were not performed. History, physical exam findings, results of visit, diagnosis, medication regimens and plan of future care have been considered. Additional MDM may be found in the ED course. Vital signs were rechecked before final disposition and determined to be stable. Amount and/or Complexity of Data Reviewed Labs: ordered. Decision-making details documented in ED Course. Radiology: ordered. Decision-making details documented in ED Course. Risk OTC drugs. Flowsheet Documentation: Scoring Tools: No data recorded Disposition/Condition: ED Disposition ED Disposition Discharge Condition Stable Comment -- Discharge Medications: Patient's Medications No medications on file Follow-up: Contact information for follow-up Your doctor Electronically signed by: Gus Stewart DO 03/18/24 1407 [facility]
[2024-12-01 11:53] LABS: Absolute Lymphocytes (CBC) 1.4 K/uL (0.7-4.9); Hematocrit 36.1 % (36.0-45.0); Hemoglobin 11.2 g/dL (12.0-15.0); MCH 24.7 pg (27.0-35.0); MCHC 31.1 g/dL (32.0-36.0); MCV 79.5 fL (80-100); MPV 7.1 fL (7.6-11.3); Nucleated RBC Absolute Count 0.0 (0-0); Nucleated Red Blood Cells % 0.0 % (0-0); RBC Red Blood Cell Count 4.54 M/uL (3.86-4.86); White Blood Count 4.60 thou/uL (4.3-10.9)
[2024-12-01] MEDS ORDERED: KETOROLAC 30 MG/ML INJ ONE (11:53)
[2024-12-01] MEDS ORDERED: NA CHLORIDE 0.9% 1,000 ML ONE (11:53)
[2024-12-01] MEDS ORDERED: ONDANSETRON 4 MG/2 ML VIAL ONE (11:53)
[2024-12-01 11:59] LABS: PT Prothrombin Time 12.7 SECONDS (10-13.0); Protime INR 1.13
--- NOTE | 2024-12-01 12:08 | RAD REPORT ---
Procedure: Chest Single View HISTORY: Chest pain COMPARISON: none FINDINGS: The lungs appear clear of acute infiltrate. No significant pleural effusion noted. The heart is normal size. IMPRESSION: No acute abnormality is displayed.
[2024-12-01 12:19] LABS: ALT/SGPT 15 U/L (13-56); AST/SGOT < 10 U/L (15-37); Albumin 3.3 g/dL (3.4-5.0); Albumin/Globulin Ratio 0.9 (1.1-1.8); Alkaline Phosphatase 43 U/L (45-117); Anion Gap 9.4 mEq/L (5.0-15.0); BUN Blood Urea Nitrogen 9 mg/dL (7-18); Globulin 3.8 g/dL (2.3-3.5); Glucose Level 98 mg/dL (74-106); Magnesium 1.9 mg/dL (1.6-2.4); NT PRO-BNP 40 pg/mL (<125); Potassium 3.4 mEq/L (3.5-5.1); Thyroid Stimulating Hormone 1.450 uIU/mL (0.358-3.740); Troponin High Sensitivity 6.7 pg/mL (<58.9)
[2024-12-01 12:20] LABS: Bilirubin Indirect, Calculated 0.2 mg/dL (0.2-0.8)
--- NOTE | 2024-12-01 13:17 | ER ---
Nurse's Notes [facility] Name: Tristan Song Age: 29 yrs Sex: Female : 1995 Arrival Date: 12/01/2024 Time: 11:09 Bed 5 Private MD: Diagnosis: Chest pain, unspecified Presentation: 12/01 11:17 Chief complaint: Patient states: SHE WAS AT WORK, 1 HOUR AGO BECAME NAUSEOUS, STOMACH dd2 CRAMPING AND LIGHT HEADED. PT REPORTS SHE BEGAN HAVING TOP MIDDLE CHEST PAIN. Coronavirus screen: At this time, the client does not indicate any symptoms associated with coronavirus-19. Ebola Screen: No symptoms or risks identified at this time. Initial Sepsis Screen: Does the patient meet any 2 criteria? No. Patient's initial sepsis screen is negative. Does the patient have a suspected source of infection? No. Patient's initial sepsis screen is negative. Risk Assessment: Do you want to hurt yourself or someone else? Patient reports no desire to harm self or others. Onset of symptoms was December 01, 2024 at 10:00. 11:17 Method Of Arrival: Ambulatory dd2 11:17 Acuity: SHALA 3 dd2 Triage Assessment: 11:19 General: Appears in no apparent distress. uncomfortable, Behavior is cooperative, dd2 appropriate for age, crying. Pain: Complains of pain in mid-sternal area Pain currently is 5 out of 10 on a pain scale. Cardiovascular: Reports chest pain, lightheadedness. GI: Reports cramping, nausea. Historical: - Allergies: 11:19 No Known Allergies; dd2 - PMHx: 11:19 Kidney stones; Hypertensive disorder; dd2 - PSHx: 11:19 None; dd2 - Immunization history:: Adult Immunizations unknown. - Infectious Disease History:: Denies. - Social history:: Smoking status: Patient denies any tobacco usage or history of. Screenin:00 [facility] ED Fall Risk Assessment (Adult) History of falling in the last 3 months, ph including since admission No falls in past 3 months (0 pts) Confusion or Disorientation No (0 pts) Intoxicated or Sedated No (0 pts) Impaired Gait No (0 pts) Mobility Assist Device Used No (0 pt) Altered Elimination No (0 pt) Score/Fall Risk Level 0 - 2 = Low Risk Oriented to surroundings, Maintained a safe environment, Hourly rounding (assess needs \T\ fall precautionary measures) done. Abuse screen: Denies threats or abuse. Denies injuries from another. Nutritional screening: No deficits noted. Tuberculosis screening: No symptoms or risk factors identified. Assessment: 11:45 General: Appears in no apparent distress. uncomfortable, Behavior is calm, cooperative, ph appropriate for age. Pain: Complains of pain in chest and abdomen Pain does not radiate. Pain began suddenly. Neuro: Level of Consciousness is awake, alert, obeys commands, Oriented to person, place, time, situation. Cardiovascular: Capillary refill < 3 seconds in bilateral fingers Patient's skin is warm and dry. Cardiovascular: Reports chest pain, lightheadedness. Respiratory: Airway is patent Respiratory effort is even, unlabored, Respiratory pattern is regular, symmetrical. GI: Reports lower abdominal pain, nausea, Patient currently denies diarrhea, vomiting. Derm: Skin is pink, warm \T\ dry. 13:00 Reassessment: Patient appears in no apparent distress at this time. Patient and/or ph family updated on plan of care and expected duration. Pain level reassessed. Patient is alert, oriented x 3, equal unlabored respirations, skin warm/dry/pink. Vital Signs: 11:17 BP 135 / 92; Pulse 78; Resp 17; Temp 98.1; Pulse Ox 100% ; Weight 85.73 kg; Height 5 dd2 ft. 9 in. ; Pain 5/10; 12:00 BP 127 / 86; Pulse 72; Resp 18; Pulse Ox 99% on R/A; ph 13:00 BP 132 / 76; Pulse 72; Resp 18; Pulse Ox 99% on R/A; ph 14:00 BP 126 / 70; Pulse 74; Resp 18; Temp 97.3; Pulse Ox 100% on R/A; ph 11:17 Body Mass Index 27.91 (85.73 kg, 175.26 cm) dd2 11:17 Pain Scale: Adult dd2 Vitals: 12:00 Cardiac Rhythm Assessment Sinus rhythm. ED Course: 11:11 Patient arrived in ED. al6 11:15 Veronika Bergeron PA-C is PHCP. sb4 11:15 Ventura Vieira DO is Attending Physician. sb4 11:19 Triage completed. dd2 11:19 Arm band placed on right wrist. dd2 11:46 XRAY Chest (1 view) In Process Unspecified. EDMS 11:57 Initial lab(s) drawn, by me, sent to lab. EKG done, by ED staff, reviewed by Veronika Bergeron PA-C. Inserted saline lock: 20 gauge in left antecubital area, using aseptic technique. Blood collected. Flushed with 10 mL NS. 12:00 Patient has correct armband on for positive identification. Bed in low position. Call ph light in reach. Side rails up X 1. laboratory monitor on. Pulse ox on. NIBP on. Door closed. Noise minimized. Warm blanket given. 12:00 Patient maintains SpO2 saturation greater than 95% on room air. ph 13:09 Jana Felipe, RN is Primary Nurse. ph 14:00 No provider procedures requiring assistance completed. IV discontinued, intact, ph bleeding controlled, No redness/swelling at site. Pressure dressing applied. Administered Medications: 12:30 Drug: NS 0.9% IV 1000 ml IV at 1 bolus Per protocol; to be given as a bolus over 60 ph minutes Route: IV; Rate: 1 bolus; Site: left antecubital; 14:00 Follow up: Response: No adverse reaction; IV Status: Completed infusion; IV Intake: ph 1000ml 12:30 Drug: Ondansetron IVP 4 mg IVP once; over 2 minutes Route: IVP; Site: left antecubital; ph 13:00 Follow up: Response: No adverse reaction ph 12:30 Drug: Ketorolac IVP 15 mg IVP once Route: IVP; Site: left antecubital; ph 13:00 Follow up: Response: No adverse reaction ph Medication: 12:00 VIS not applicable for this client. ph Intake: 14:00 IV: 1000ml; Total: 1000ml. ph Outcome: 13:16 Discharge ordered by MD. grady 14:08 Patient left the ED. ph 14:08 Discharged to home ambulatory, with family, ph 14:08 Condition: good 14:08 Discharge instructions given to patient, Instructed on discharge instructions, follow up and referral plans. Demonstrated understanding of instructions, follow-up care, Signatures: Dispatcher [employer] EDMN Jana Felipe RN RN ph Brown, Sophia, PA-C PA-C sb4 DAVIS, DIANA, RN RN dd2 Sis Mendoza al6 Lexa De La Rosa rk3 Corrections: (The following items were deleted from the chart) 13:10 13:09 NS 0.9% IV 1000 ml IV at 1 bolus in left antecubital ph ph
--- NOTE | 2024-12-01 13:17 | EDPHYS ---
Physician Documentation [facility] Name: Tristan Song Age: 29 yrs Sex: Female : 1995 Arrival Date: 12/01/2024 Time: 11:09 Bed 5 Private MD: ED Physician Ventura Vieira HPI: 12/01 14:56 This 29 yrs old Black Female presents to ER via Ambulatory with complaints of Chest sb4 Pain, Dizziness. 14:56 Patient reports chest discomfort, dizziness, and abdominal cramping, and sb4 lightheadedness while working at [employer] this morning. Denies any prior episodes of this. Denies any medical history. States her symptoms have improved with rest but her job wanted to have her evaluated. Does endorse some nausea as well. Historical: - Allergies: 11:19 No Known Allergies; dd2 - PMHx: 11:19 Kidney stones; Hypertensive disorder; dd2 - PSHx: 11:19 None; dd2 - Immunization history:: Adult Immunizations unknown. - Infectious Disease History:: Denies. - Social history:: Smoking status: Patient denies any tobacco usage or history of. ROS: 14:56 Constitutional: Negative for fever, chills, and weight loss, sb4 14:56 Cardiovascular: Positive for chest pain, 14:56 Abdomen/GI: Positive for abdominal pain, nausea, 14:56 Neuro: Positive for dizziness, 14:56 All other systems are negative, Exam: 14:56 Constitutional: This is a well developed, well nourished patient who is awake, alert, sb4 and in no acute distress. Head/Face: Normocephalic, atraumatic. Eyes: Extra-ocular motions intact. Periorbital areas with no swelling, redness, or edema. ENT: Mucous membranes moist. Cardiovascular: Regular rate and rhythm with a normal S1 and S2. Respiratory: No increased work of breathing, no retractions or nasal flaring. Abdomen/GI: Soft, non-tender, no distension. Skin: Warm, dry with normal turgor. Normal color with no rashes, no lesions, and no evidence of cellulitis. Vital Signs: 11:17 BP 135 / 92; Pulse 78; Resp 17; Temp 98.1; Pulse Ox 100% ; Weight 85.73 kg; Height 5 dd2 ft. 9 in. ; Pain 5/10; 12:00 BP 127 / 86; Pulse 72; Resp 18; Pulse Ox 99% on R/A; ph 13:00 BP 132 / 76; Pulse 72; Resp 18; Pulse Ox 99% on R/A; ph 14:00 BP 126 / 70; Pulse 74; Resp 18; Temp 97.3; Pulse Ox 100% on R/A; ph 11:17 Body Mass Index 27.91 (85.73 kg, 175.26 cm) dd2 11:17 Pain Scale: Adult dd2 MDM: 11:15 Medical Screening Exam initiated sb4 14:56 Differential diagnosis: Anxiety, hypovolemia, hypokalemia, abnormal EKG, thyroid sb4 abnormality, electrolyte abnormality, . Data reviewed: vital signs, nurses notes, lab test result(s), EKG, radiologic studies, and as a result, I will discharge patient. Care significantly affected by the following chronic conditions: Hypertension. Counseling: I had a detailed discussion with the patient and/or guardian regarding the historical points, exam findings, and any diagnostic results supporting the discharge/admit diagnosis, the presence of at least one elevated blood pressure reading (>120/80) during this emergency department visit, lab results, radiology results, the need for outpatient follow up, for definitive care, to return to the emergency department if symptoms worsen or persist or if there are any questions or concerns that arise at home. ED course: Patient reports feeling better, workup is negative, will safely discharge home at this time. Advised rest and hydration over the next 24 hours. 12/01 11:20 Order name: Basic Metabolic Panel; Complete Time: 12:20 sb4 12/01 11:20 Order name: CBC with Diff; Complete Time: 11:58 sb4 12/01 11:20 Order name: LFT's; Complete Time: 12:20 sb4 12/01 11:20 Order name: Magnesium; Complete Time: 12:20 sb4 12/01 11:20 Order name: NT PRO-BNP; Complete Time: 12:20 sb4 12/01 11:20 Order name: PT-INR; Complete Time: 12:00 sb4 12/01 11:20 Order name: Troponin HS; Complete Time: 12:20 sb4 12/01 11:20 Order name: Test, Serum; Complete Time: 12:20 sb4 12/01 11:20 Order name: TSH; Complete Time: 12:20 sb4 12/01 11:20 Order name: XRAY Chest (1 view); Complete Time: 12:09 sb4 12/01 11:20 Order name: EKG; Complete Time: 11:20 sb4 12/01 11:20 Order name: Cardiac monitoring; Complete Time: 11:57 sb4 12/01 11:20 Order name: EKG - Nurse/Tech; Complete Time: 11:57 sb4 12/01 11:20 Order name: IV Saline Lock; Complete Time: 11:57 sb4 12/01 11:20 Order name: Labs collected and sent; Complete Time: 11:57 sb4 12/01 11:20 Order name: O2 Per Protocol; Complete Time: :57 sb4 12/01 11:20 Order name: O2 Sat Monitoring; Complete Time: :57 sb4 EC:55 Rate is 74 beats/min. Rhythm is regular, Normal Sinus Rhythm. MO interval is normal at sb4 184 msec. QRS interval is normal at 70 msec. QT interval is normal at 388 msec. No Q waves. T waves are Normal. No ST changes noted. Clinical impression: Normal ECG. Interpreted by me. Reviewed by me. Administered Medications: 12:30 Drug: NS 0.9% IV 1000 ml IV at 1 bolus Per protocol; to be given as a bolus over 60 ph minutes Route: IV; Rate: 1 bolus; Site: left antecubital; 14:00 Follow up: Response: No adverse reaction; IV Status: Completed infusion; IV Intake: ph 1000ml 12:30 Drug: Ondansetron IVP 4 mg IVP once; over 2 minutes Route: IVP; Site: left antecubital; ph 13:00 Follow up: Response: No adverse reaction ph 12:30 Drug: Ketorolac IVP 15 mg IVP once Route: IVP; Site: left antecubital; ph 13:00 Follow up: Response: No adverse reaction ph Disposition: 15:17 I was immediately available on-site in the Emergency Department for consultation in the ms3 care of the patient. Disposition Summary: 12/01/24 13:16 Discharge Ordered Notes: Location: Home sb4 Problem: new sb4 Symptoms: have improved sb4 Condition: Stable sb4 Diagnosis - Chest pain, unspecified sb4 Followup: sb4 - With: Emergency Department - When: As needed - Reason: Trouble breathing, Worsening of condition Discharge Instructions: - Discharge Summary Sheet sb4 - Nonspecific Chest Pain, Adult, [id number] sb4 Forms: - Work release form sb4 - Patient Portal Instructions sb4 - Leadership Thank You Letter sb4 Signatures: Dispatcher [employer] EDMS Jana Felipe, RN RN ph Ventura Vieira, DO DO ms3 Veronika Bergeron, PAMelodieC PALink sb4 PIA LIZARRAGA RN RN dd2 Corrections: (The following items were deleted from the chart) 11:20 11:20 BASIC METABOLIC PANEL+C.LAB.BRZ ordered. EDMS EDMS 11:20 11:20 CBC+H.LAB.BRZ ordered. EDMS EDMS 11:20 11:20 HEPATIC FUNCTION+C.LAB.BRZ ordered. EDMS EDMS 11:20 11:20 MAGNESIUM+C.LAB.BRZ ordered. EDMS EDMS 11:20 11:20 PROBNP+C.LAB.BRZ ordered. EDMS EDMS 11:20 11:20 PROTIME (+INR)+COAG.LAB.BRZ ordered. EDMS EDMS 11:20 11:20 Troponin High Sensitivity+C.LAB.BRZ ordered. EDMS EDMS 11:20 11:20 TEST, SERUM+SC.LAB.BRZ ordered. EDMS EDMS 11:20 11:20 THYROID STIMULAT HORMONE+C.LAB.BRZ ordered. EDMS EDMS
[2024-12-01 18:48] VITALS: BP 135/92; TEMP 98.1; O2SAT 100
== END 2024-12-01 14:08 | disposition home or self-care (01) ==
LOC: ER 11:09
DX: R07.9 Chest pain, unspecified (principal); R42 Dizziness and giddiness; I10 Essential (primary) hypertension
CPT/HCPCS: 93005; 85025; 80048; 36415; 83735; 84703; 85610; 80076; 84443; 84484; 83880; 71045; J1885; J2405; J7030; 96361; 96374; 96375; 99285